=== PATIENT | male | born 1955 | race Hispanic/Latino ===

== ENCOUNTER 2017-12-11 09:22 | Inpatient (IN) | payer MEDICAID, SELFPAY ==
[2017-12-11 10:06] LABS: #Basophils 0.1 thou/uL (0.0-0.2); #Eosinphils 0.4 thou/uL (0.0-0.7); #Lymphocytes 1.8 thou/uL (1.20-3.40); #Monocytes 0.7 thou/uL (0.11-0.59); #Neutrophils 6.6 thou/uL (1.40-6.50); %Basophils 0.7 % (0.0-1.0); %Eosinophils 4.2 % (0.0-10.0); %Lymphocytes 18.5 % (21.0-51.0); %Monocytes 6.9 % (0.0-10.0); %Neutrophils 69.8 % (42.0-75.0); Mean Corpuscular Hemoglobin 31.4 pg (27.0-31.0); Mean Corpuscular Volume 92.3 fl (80.0-94.0); Mean Platelet Volume 6.9 fL (7.4-10.4); Platelet Count 218 thou/uL (130-400); RBC Distribution Width 14.1 % (11.5-14.5); Red Blood Cell (RBC) Count 4.78 mill/uL (4.70-6.10); White Blood Cell (WBC) Count 9.5 thou/uL (4.8-10.8)
--- NOTE | 2017-12-11 10:16 | RAD ---
PORTABLE AP CHEST XRAY: DATE: 12/11/17. HISTORY: Atrial fibrillation. COMPARISON: 07/17/15. FINDINGS: The cardiac silhouette remains enlarged. The pulmonary vasculature is within normal limits. The katelynn gs are clear. There does appear to be dislocation involving the right glenohumeral joint, but this w ould be better evaluated with plain film evaluation of the right shoulder. No other interval change. IMPRESSION: 1. Findings suggesting dislocation involving the right glenohumeral joint. Dedicated views of the r ight shoulder are recommended for further evaluation. 2. Cardiomegaly. 3. Above findings were discussed with Dr. Adame on 12/11/17 at 1011 hours. CODE CR POS: YOSELIN
[2017-12-11] MEDS ORDERED: Aspirin 325 MG TAB ONE (10:20)
[2017-12-11 10:25] LABS: ALT (SGPT) 20 U/L (8-55); AST (SGOT) 17 U/L (5-34); Albumin 4.3 g/dL (3.4-4.8); Alkaline Phosphatase 118 U/L (40-150); Anion Gap 10 mmol/L (10-20); BUN (Urea Nitrogen) 14 mg/dL (8.4-25.7); CK (CPK) 110 U/L (30-200); Calc. Creatinine Clearance 0 mL/min (70-130); Calcium 9.8 mg/dL (7.8-10.44); Carbon Dioxide 27 mmol/L (23-31); Chloride 107 mmol/L (98-107); Estimated GFR-MDRD Greater than 90; Glucose 132 mg/dL (80-115); Potassium 4.3 mmol/L (3.5-5.1); Protein, Total 7.3 g/dL (5.8-8.1); Sodium 140 mmol/L (136-145)
[2017-12-11 10:29] LABS: CKMB 2.9 ng/mL (0-6.6); Troponin I 0.016 ng/mL (< 0.028)
[2017-12-11 10:43] LABS: Bilirubin Negative (Negative); Blood, Urine Moderate (Negative); Clarity CLEAR (Clear); Glucose, Urine (Dipstick) Negative (Negative); Leukocyte Moderate (Negative); Nitrite Negative (Negative); Protein, Urine (Dipstick) Negative (Neg-Trace); Specific Gravity, Urine 1.015 (1.002-1.036); Urobilinogen 0.2 mg/dL (0.2-1.0)
[2017-12-11 10:47] LABS: Bacteria/HPF None Seen HPF (None Seen); Hyaline Casts/LPF 0-3 HYALINE CAST LPF (0-3 Hyaline); Pathc Cast-AUWi Flag 0.43 (0-2.49); Squamous Epithelial 0-3 HPF (0-3)
--- NOTE | 2017-12-11 11:18 | RAD ---
RIGHT SHOULDER 3 VIEWS: HISTORY: Possible dislocation. COMPARISON: None. FINDINGS: There is a irregularity involving the greater tuberosity suggesting a deformity secondary to anterior hypodensity or dislocation. IMPRESSION: Anterior-inferior dislocation with irregularity involving the proximal humerus. Post reduction films are recommended. POS: YOSELIN
--- NOTE | 2017-12-11 11:29 | PDOC.FPRHP ---
- History of Present Illness Chief Complaint: A-fib History of Present Illness: 62 yo male presents for evaluation of irregular heart beat. He states that he went for a check up at the [facility] and was told his heart rate was all over the place and was told to come to ED. He denies chest pain, sob, or feeling palpitations. He denies n/v/d, fevers, chills, or cough. He states he has had a-fib for multiple years and it hasn't effected him. He states that he is compliant with the medications he has been given. He was seen in 2014 for a heart failure exacerbation associated with A-fib. He has had no acute changes in his health and really has no complaints. ED Course: 81 mg ASA - Allergies/Adverse Reactions Allergies Allergy/AdvReac Type Severity Reaction Status Date / Time No Known Drug Allergies Allergy Verified 07/18/15 03:13 - Home Medications Medication Instructions Recorded Confirmed Type Lisinopril [Zestril] 10 mg PO DAILY #0 tab 07/21/15 12/11/17 Rx Pravastatin Sodium [Pravachol] 40 mg PO HS #0 tab 07/21/15 12/11/17 Rx metFORMIN [Glucophage] 500 mg PO BID-WM 12/11/17 12/11/17 History - History PMHx: A-fib, DM2, HLD, HTN, Gout PSHx: None FHx: Non-Contributory Social: Patient denies drug use or smoking history. Patient drinks alcohol socially. - Review of Systems General: denies: fever/chills, weight/appetite/sleep changes Eyes: denies: eye pain ENT: denies: nasal congestion Respiratory: denies: cough, congestion, shortness of breath, exercise intolerance Cardiovascular: denies: chest pain, palpitation, edema Gastrointestinal: denies: nausea, vomiting, diarrhea, constipation Genitourinary: denies: incontinence, dysuria, polyuria Skin: denies: rashes, lesions Musculoskeletal: denies: pain, tenderness, stiffness, swelling, arthritis/ arthralgias Neurological: denies: numbness, syncope Psychological: denies: anxiety, depression - Vital signs BP: 134/99 HR: 108 RR: 18 Tmax: 98.2 Pox: 95% on RmAir Wt: 97 kg - Physical Exam Constitutional: NAD, awake, alert and oriented HEENT: PERRLA, grossly normal vision, TM's clear and intact, grossly normal hearing, normal nasal mucosa, good dention Neck: supple, FROM, trachea midline Chest: no-tender to palpation Heart: normal S1/S2, no murmurs/rubs/gallops, pulses present, no edema -Heart: Irregularly irregular rhythm Lungs: CTAB, no wheezing Abdomen: soft, non-tender, bowel sounds present, no masses/distention Musculoskeletal: normal structure, normal tone, ROM grossly normal Neurological: no focal deficit, CN II-XII intact, normal sensation Skin: no rash/lesions, good turgor, capillary refill <2 seconds Heme/Lymphatic: no unusual bruising or bleeding, no purpura Psychiatric: normal mood and affect, good judgment and insight, intact recent and remote memory FMR H&P: Results - Labs Result Diagrams: 12/11/17 09:45 12/11/17 09:45 Lab results: WBC 9.5 thou/uL (4.8-10.8) 12/11/17 09:45 Hgb 15.0 g/dL (14.0-18.0) 12/11/17 09:45 Hct 44.1 % (42.0-52.0) 12/11/17 09:45 MCV 92.3 fl (80.0-94.0) 12/11/17 09:45 Plt Count 218 thou/uL (130-400) 12/11/17 09:45 Neutrophils % 69.8 % (42.0-75.0) 12/11/17 09:45 Sodium 140 mmol/L (136-145) 12/11/17 09:45 Potassium 4.3 mmol/L (3.5-5.1) 12/11/17 09:45 Chloride 107 mmol/L (98-107) 12/11/17 09:45 Carbon Dioxide 27 mmol/L (23-31) 12/11/17 09:45 BUN 14 mg/dL (8.4-25.7) 12/11/17 09:45 Creatinine 0.79 mg/dL (0.6-1.3) 12/11/17 09:45 Glucose 132 mg/dL (80-115) H 12/11/17 09:45 Calcium 9.8 mg/dL (7.8-10.44) 12/11/17 09:45 Total Bilirubin 1.0 mg/dL (0.2-1.2) 12/11/17 09:45 AST 17 U/L (5-34) 12/11/17 09:45 ALT 20 U/L (8-55) 12/11/17 09:45 Alkaline Phosphatase 118 U/L (40-150) 12/11/17 09:45 Creatine Kinase 110 U/L (30-200) 12/11/17 09:45 CK-MB (CK-2) 2.9 ng/mL (0-6.6) 12/11/17 09:45 Serum Total Protein 7.3 g/dL (5.8-8.1) 12/11/17 09:45 Albumin 4.3 g/dL (3.4-4.8) 12/11/17 09:45 Urine Ketones Negative mg/dL (Negative) 12/11/17 10:21 Urine Blood Moderate (Negative) H 12/11/17 10:21 Urine Nitrite Negative (Negative) 12/11/17 10:21 Ur Leukocyte Esterase Moderate (Negative) H 12/11/17 10:21 Urine RBC 4-6 HPF (0-3) 12/11/17 10:21 Urine WBC 7-10 HPF (0-3) H 12/11/17 10:21 Ur Squamous Epith Cells 0-3 HPF (0-3) 12/11/17 10:21 Urine Bacteria None Seen HPF (None Seen) 12/11/17 10:21 - EKG Interpretation EK lead EKG shows, atrial fibrillation with rapid ventricular response, Rate ( beats per minute): 90, Conduction with, complete right bundle branch block, ST segments normal, T waves normal, [place] normal, Other findings include:, prolonged QTc. - Radiology Interpretation Chest x-ray Status: report reviewed by me (1. Findings suggesting dislocation involving the right glenohumeral joint. Dedicated views of the r ight shoulder are recommended for further evaluation. 2. Cardiomegaly.) FMR H&P: A/P - Problem List (1) Afib Current Visit: No Status: Acute Code(s): I48.91 - UNSPECIFIED ATRIAL FIBRILLATION (2) Shoulder dislocation Current Visit: Yes Status: Chronic (3) HLD (hyperlipidemia) Current Visit: Yes Status: Acute Code(s): E78.5 - HYPERLIPIDEMIA, UNSPECIFIED (4) DM2 (diabetes mellitus, type 2) Current Visit: No Status: Chronic (5) HTN (hypertension) Current Visit: No Status: Chronic Code(s): I10 - ESSENTIAL (PRIMARY) HYPERTENSION (6) Hematuria Current Visit: Yes Status: Acute Code(s): R31.9 - HEMATURIA, UNSPECIFIED (7) CHF (congestive heart failure) Current Visit: No Status: Acute Code(s): I50.9 - HEART FAILURE, UNSPECIFIED (8) Prolonged QT interval Current Visit: Yes Status: Acute Code(s): R94.31 - ABNORMAL ELECTROCARDIOGRAM [ECG] [EKG] - Plan (1) A fib - HR 60-80, monitoring is tracing from 40-110 - Will monitor and consider evaluation for tachy-clive if persists at extremes of HR - If symptomatic will consult Cards - Will restart BB (2) Shoulder dislocation - Chronic found on xray - Ortho consulted in ED - Appreciate recs (3) HLD (hyperlipidemia) - Continue Pravastatin, consider increase in regimen (4) DM2 (diabetes mellitus, type 2) - Continue metformin - SSI - Accuchecks (5) HTN (hypertension) - Continue home meds (6) Hematuria - Will need outpatient Urology workup for this - Hgb WNL - Will check INR (7) CHF - Previous ECHO from 2014 EF 20-25% - Not currently symptomatic - Will repeat ECHO (8) Prolonged QT - QTC on EKG 491 - Avoid QT prolonging agents - Will recheck EKG in AM CODE STATUS: Full Disposition: Stable, Will admit to Telemetry. FMR H&P: Upper Level - Pertinent history Mr. Vides presents after recommendation by PCP at [facility] to proceed to ER for irregularly irregular heart rhythm. He has been asymptomatic and worked without issue yesterday. He reports he was told 10+ years ago about his irregular heart rhythm but has not seen a supervisor ditching or been on blood thinners to his knowledge. - Pertinent findings Pertinent portions of history and exam repeated by me. Agree with Dr. Patrick. Patient also endorses that he fell out of bed a month ago onto his R shoulder. He has no history of shoulder dislocations and does not have any current pain. He noted that he cannot reach his hand above his head on that side, however, but strength is preserved. No obvious asymmetry but limited ROM. Strength 5/5 on RUE. Nuchal obesity, difficult to assess thyroid, otherwise exam WNL. A/P: 62 yo M with known history a fib here with concern for tachy-clive and shoulder dislocation 1. Atrial fibrillation with pulse variation from 40s to low 100s: Will admit to telemetry and monitor rhythm. Trend troponins. Will restart B-florentino 2. H/o CHF: Will repeat ECHO and make appropriate referral pending results. Check FLP 3. DM: Will check a1c, start home meds. ACHS accuchecks with mild SSI 4. HTN, HLD: Home meds 5. Shoulder dislocation: Chronic x1 month and noted on xray. Ortho consulted in ED and will see on floor 6. Asymptomatic hematuria: Coags, H&H stable, will need OP urology 7. Prolonged QT: Avoid QT prolonging agents - Plan Date/Time: 12/11/171127 I, Gabriella Peguero MD, have evaluated this patient and agree with findings/plan as outlined by real estate internship resident. Pertinent changes/additions are listed here. Attending Addendum - Attending Addendum Date/Time: 12/11/17 989 I personally evaluated the patient and discussed the management with Dr. Patrick /Sudhir. I agree with the History, Examination, Assessment and Plan documented above with any addition or exceptions noted below. Patient with longstanding history of sCHF and Afib that has been rate controlled overall without medication presenting today at the suggestion of his PCP at [facility]. He overall denies any symptoms, and reports that he worked yesterday without any issues. He is overall stoic and denies any pain complaints or complaints otherwise. Does report some restriction of movement of his shoulder that is associated with new diagnosis of dislocated shoulder. Patient vitals overall stable, though his HR is irregular and ranges from 40-110 , but most of the time is normal rate. His labs are overall normal and no elevated troponins. Due to his history of Afib with intermittent bradycardia and tachycardia, concern for SSS exists. Patient will be monitored on telemetry so that we can continue to see if his heart rate fluctuates. If so, will need cardiology evaluation for possible PM placement. Due to his history of sCHF, will repeat Echo today. Patient is overall asymptomatic and is on Lisinopril statin therapy. Will further risk stratify. Ortho to see patient in relation to his dislocated shoulder.
[2017-12-11 12:57] LABS: Troponin I 0.014 ng/mL (< 0.028)
[2017-12-11] MEDS ORDERED: Acetaminophen 325 MG TAB PO PRN ×2 (16:40→17:10)
[2017-12-11] MEDS ORDERED: Ondansetron HCl/PF 4 MG/2 ML Vial IVP PRN (16:40)
[2017-12-11] MEDS ORDERED: HYDROcodone/Acetaminophen 5/325 mg Tablet PO PRN ×2 (16:40)
[2017-12-11] MEDS ORDERED: Ondansetron ODT 4 MG TAB SL PRN (16:40)
[2017-12-11 17:08] LABS: Troponin I 0.018 ng/mL (< 0.028)
[2017-12-11 17:09] VITALS: BMI 33.3
[2017-12-11] MEDS ORDERED: Dextrose 5% in Water 1,000 ML IV PRN (17:10)
[2017-12-11] MEDS ORDERED: Dextrose 50% Abboject 50 ML SYRINGE SLOW IVP PRN (17:10)
[2017-12-11] MEDS ORDERED: HumaLOG 300 UNITS/3 ML VIAL SC PRN (17:10)
[2017-12-11 17:39] LABS: INR-International Normal Ratio 1.1; PTT 28.1 SEC (22.9-36.1); Prothrombin Time 14.1 SEC (12.0-14.7)
[2017-12-11 17:41] LABS: Hemoglobin A1c 6.6 % (4.0-6.0)
[2017-12-11 17:57] LABS: Cardiac Risk 3.5 (Less than 4.5); Magnesium 1.9 mg/dL (1.6-2.6); Phosphorus 3.5 mg/dL (2.3-4.7)
[2017-12-11] MEDS: Atorvastatin Calcium 10 MG TAB PO SCH (20:32)
--- NOTE | 2017-12-12 07:26 | PDOC.FM ---
- Subjective Subjective: Patient feels well. He does not feel chest pain or palpitations. He denies sob. No other complaints this morning. - Objective Vital Signs & Weight: Vital Signs (12 hours) Temp Pulse Resp BP Pulse Ox 12/12/17 04:11 98.5 F 80 18 107/81 95 12/12/17 00:05 98.2 F 72 20 109/76 96 12/11/17 20:00 98.9 F 81 20 97 12/11/17 19:48 98.9 F 81 20 170/85 H 97 Weight Weight 92.261 kg I&O: 12/11/17 12/12/17 12/13/17 06:59 06:59 06:59 Intake Total 480 Output Total 355 Balance 125 Result Diagrams: 12/11/17 09:45 12/11/17 09:45 <Hipolito Patrick - Last Filed: 12/12/17 07:24> - Objective Vital Signs & Weight: Vital Signs (12 hours) Temp Pulse Resp BP BP Pulse Ox 12/12/17 09:37 127/84 12/12/17 09:36 98.3 F 89 18 127/84 91 L 12/12/17 04:11 98.5 F 80 18 107/81 95 12/12/17 00:05 98.2 F 72 20 109/76 96 Weight Weight 92.261 kg I&O: 12/11/17 12/12/17 12/13/17 06:59 06:59 06:59 Intake Total 480 Output Total 355 Balance 125 Result Diagrams: 12/11/17 09:45 12/11/17 09:45 <Cecilio Thompson - Last Filed: 12/12/17 10:41> Phys Exam - Physical Examination HEENT: PERRLA Neck: no nodes Respiratory: no wheezing, clear to auscultation bilateral Cardiovascular: no significant murmur irregularly irregular rhythm Gastrointestinal: soft, non-tender, no distention, positive bowel sounds Musculoskeletal: no edema, pulses present Neurological: non-focal, normal sensation, moves all 4 limbs Lymphatic: no nodes Psychiatric: normal affect, A&O x 3 Skin: no rash <Hipolito Patrick - Last Filed: 12/12/17 07:24> Dx/Plan (1) Afib Code(s): I48.91 - UNSPECIFIED ATRIAL FIBRILLATION Status: Acute (2) Shoulder dislocation Status: Chronic (3) HLD (hyperlipidemia) Code(s): E78.5 - HYPERLIPIDEMIA, UNSPECIFIED Status: Acute (4) DM2 (diabetes mellitus, type 2) Status: Chronic (5) HTN (hypertension) Code(s): I10 - ESSENTIAL (PRIMARY) HYPERTENSION Status: Chronic (6) Hematuria Code(s): R31.9 - HEMATURIA, UNSPECIFIED Status: Acute (7) CHF (congestive heart failure) Code(s): I50.9 - HEART FAILURE, UNSPECIFIED Status: Acute (8) Prolonged QT interval Code(s): R94.31 - ABNORMAL ELECTROCARDIOGRAM [ECG] [EKG] Status: Acute - Plan Plan: (1) A fib - HR 60-80, with breakthroughs up to 140-150 - Will monitor and consider evaluation for tachy-clive if persists at extremes of HR - If symptomatic will consult Cards - Will restart BB today. (2) Shoulder dislocation - Chronic found on xray - Ortho consulted in ED - Appreciate recs (3) HLD (hyperlipidemia) - Continue Pravastatin, consider increase in regimen (4) DM2 (diabetes mellitus, type 2) - Continue metformin - SSI - Accuchecks - Well controlled (5) HTN (hypertension) - Continue home meds (6) Hematuria - Will need outpatient Urology workup for this - Hgb WNL - INR 1.1 (7) CHF - Previous ECHO from 2014 EF 20-25% - Not currently symptomatic - ECHO pending (8) Prolonged QT - QTC on EKG 491 - Avoid QT prolonging agents - Will recheck EKG in AM Disposition: Stable, Will admit to Telemetry. <Hipolito Patrick - Last Filed: 12/12/17 07:24> (1) Afib Code(s): I48.91 - UNSPECIFIED ATRIAL FIBRILLATION Status: Acute (2) Shoulder dislocation Status: Chronic (3) HLD (hyperlipidemia) Code(s): E78.5 - HYPERLIPIDEMIA, UNSPECIFIED Status: Acute (4) DM2 (diabetes mellitus, type 2) Status: Chronic (5) HTN (hypertension) Code(s): I10 - ESSENTIAL (PRIMARY) HYPERTENSION Status: Chronic (6) Hematuria Code(s): R31.9 - HEMATURIA, UNSPECIFIED Status: Acute (7) CHF (congestive heart failure) Code(s): I50.9 - HEART FAILURE, UNSPECIFIED Status: Acute (8) Prolonged QT interval Code(s): R94.31 - ABNORMAL ELECTROCARDIOGRAM [ECG] [EKG] Status: Acute <Cecilio Thompson R - Last Filed: 12/12/17 10:41> Attending Addendum - Attending Addendum Date/Time: 12/12/17 1037 I personally evaluated the patient and discussed the management with Dr. Patrick. I agree with the History, Examination, Assessment and Plan documented above with any addition or exceptions noted below. Patient denies complaints. Continue to be in Afib but rate mostly ok without rate control medications. He does become tachycardic, but would have some concern for worsened bradycardia if we started him back on Coreg. Cardiology consulted for possible tachy-clive syndrome. Ortho consulted for his chronic shoulder dislocation. <Cecilio Thompson R - Last Filed: 12/12/17 10:41>
[2017-12-12] MEDS: metFORMIN 500 MG TAB PO SCH ×2 (09:37→17:37)
[2017-12-12] MEDS: Lisinopril 10 MG TAB PO SCH (09:37)
[2017-12-12] MEDS: Enoxaparin Sodium 40 MG/0.4 ML SYRINGE SC SCH (09:37)
--- NOTE | 2017-12-12 13:58 | CON ---
DATE OF CONSULTATION: 12/12/2017 REASON FOR CONSULTATION: Atrial fibrillation and right bundle-branch block, congestive heart failure . HISTORY OF PRESENT ILLNESS: Mr. Cj Vides is a 62-year-old patient previously seen by Dr. Howard. T he patient went to the [facility], and was referred here after he was found apparently to have a rapid heart rate. Mr. Vides has a history of a cardiomyopathy, last seen in our office in 2015. At that time, the monae ent was given samples of Eliquis. He is also on lisinopril and carvedilol, but unfortunately did not like he came back to see us after he saw Dr. Howard in 08/2015. He says he has been doing okay. No chest pain or pressure. No heaviness or squeezing. We are not aware of his rapid heart rate, but h is rate was fast. He has been admitted for further evaluation. MEDICATIONS AT HOME: He was taking, 1. Lisinopril. 2. Pravastatin. 3. Metformin. ALLERGIES: None known. REVIEW OF SYSTEMS: Constitutional: No significant weight gain or loss. Vision: No changes. Hearing: No changes. Pulmonary: No cough or wheezing. Gastrointestinal: No nausea, vomiting, diarrhea. Skin: No rashes. Neurologic: No unilateral weakness or numbness. Psychiatric: No unusual depression or anxiety. Hematologic: No unusual bruising. Genitourinary: No burning with urination. PHYSICAL EXAMINATION: GENERAL: This is a pleasant elderly gentleman, in no distress. VITAL SIGNS: Blood pressure 127/84, pulse 90, but it is extremely variable, sometimes rates at the 1 50s. NECK: Neck veins are normal. Carotid normal upstrokes. LUNGS: Clear. CARDIAC: Irregularly irregular. No murmur, rub or gallop. ABDOMEN: Soft, nontender, no hepatosplenomegaly. EXTREMITIES: No clubbing, no cyanosis or edema. SKIN: Warm and dry. PSYCHIATRIC: Mood and affect normal. NEUROLOGIC: Grossly normal. PERIPHERALLY: He has good dorsalis pedis pulses bilaterally. LABORATORY AND X-RAY FINDINGS: EKG reveals atrial fibrillation with a very variable rate with a righ t bundle-branch block. The rates are up to 160 at times, otherwise in the 70s. Echocardiogram eject ion fraction 20%-25%, 4-chamber dilatation. ASSESSMENT: 1. Probable cardiomyopathy. 2. Right bundle-branch block. 3. Chronic atrial fibrillation with intermittent rapid rate. 3. CHADS VASc score. PLAN: 1. Add carvedilol. 2. Dr. Howard will see the patient tomorrow and decide on further therapy whether the patient may be a candidate for anticoagulation or whether cardiac catheterization should be done. He did have a st ress test previously done, which was normal, in terms of no focal perfusion, but he did have markedly depressed ejection fraction. We will also start carvedilol.
[2017-12-12] MEDS: Carvedilol 6.25 MG TAB PO SCH (17:37)
[2017-12-12] MEDS: Atorvastatin Calcium 10 MG TAB PO SCH (20:17)
--- NOTE | 2017-12-12 22:15 | CON ---
DATE OF CONSULTATION: 12/12/2017 HISTORY OF PRESENT ILLNESS: Mr. Vides is a 62-year-old right-handed male, who states that w hile living in [place], the patient fell out of bed and had immediate pain in the right shoulder regio n. He had no previous problems with the right shoulder. He had immediate inability to fully move th e shoulder and had such pain. He has significant weakness as well. He states that he was seen by a doctor in [place], who told him that the shoulder was fine. He continued to have problems with his sh oulder, this occurred over 6 weeks ago. The patient has had problems with heart rate and presented t o the emergency room yesterday with atrial fibrillation. He had x-rays obtained of the right shoulde r, which showed an anterior dislocated right shoulder. PHYSICAL EXAMINATION: Right shoulder, the patient is able to actively flex his shoulder 45 degrees. He has 40 degrees of abduction. There is some crepitance and popping with any type of range of delia on. His shoulder muscles are weak, particularly with abduction and flexion. IMPRESSION: Chronic anterior right shoulder dislocation. PLAN: Through an slab inspector, I discussed with the patient that he has a chronic shoulder dislocatio n and in order to get it back in position he would require open reduction of the shoulder anteriorly to release scar tissue and to address the anterior ligaments and the subscapularis, we will have to g et the shoulder back in place and then tightened the ligaments back. There is a high chance he also has rotator cuff tear at the same time he dislocated the shoulder and that would need to be looked at as well. My recommendation at this point would be for him to get his heart take care of, get the at rial fibrillation take care of and then see me in my office where we can more appropriately plan the surgery for the right shoulder.
--- NOTE | 2017-12-13 06:18 | PDOC.FM ---
- Subjective Subjective: Patient had a good night. He has no complaints of sob, palpitations, or chest pain. He states he feels well. No other complaints. - Objective Vital Signs & Weight: Vital Signs (12 hours) Temp Pulse Resp BP Pulse Ox 12/13/17 05:20 96.2 F L 81 20 116/76 93 L 12/12/17 23:42 97.6 F 66 20 110/66 95 12/12/17 20:00 98.2 F 84 20 135/88 96 Weight Weight 92.261 kg I&O: 12/11/17 12/12/17 12/13/17 06:59 06:59 06:59 Intake Total 480 580 Output Total 355 330 Balance 125 250 Result Diagrams: 12/11/17 09:45 12/11/17 09:45 Phys Exam - Physical Examination Constitutional: NAD HEENT: moist MMs Respiratory: no wheezing, clear to auscultation bilateral Cardiovascular: no significant murmur irregularly irregular Gastrointestinal: soft, non-tender, no distention, positive bowel sounds Musculoskeletal: no edema, pulses present Neurological: non-focal, normal sensation, moves all 4 limbs Lymphatic: no nodes Psychiatric: normal affect, A&O x 3 Skin: no rash Dx/Plan (1) Afib Code(s): I48.91 - UNSPECIFIED ATRIAL FIBRILLATION Status: Acute (2) Shoulder dislocation Status: Chronic (3) HLD (hyperlipidemia) Code(s): E78.5 - HYPERLIPIDEMIA, UNSPECIFIED Status: Acute (4) DM2 (diabetes mellitus, type 2) Status: Chronic (5) HTN (hypertension) Code(s): I10 - ESSENTIAL (PRIMARY) HYPERTENSION Status: Chronic (6) Hematuria Code(s): R31.9 - HEMATURIA, UNSPECIFIED Status: Acute (7) CHF (congestive heart failure) Code(s): I50.9 - HEART FAILURE, UNSPECIFIED Status: Acute (8) Prolonged QT interval Code(s): R94.31 - ABNORMAL ELECTROCARDIOGRAM [ECG] [EKG] Status: Acute - Plan Plan: (1) A fib - HR 60-80, with breakthroughs up to 140-150 - Cardiology consulted, appreciate recs - Carvedilol started (2) Shoulder dislocation - Chronic found on xray - Ortho consulted in ED, recommended outpatient follow up - Appreciate recs (3) HLD (hyperlipidemia) - Continue Pravastatin, consider increase in regimen (4) DM2 (diabetes mellitus, type 2) - Continue metformin - SSI - Accuchecks - Well controlled (5) HTN (hypertension) - Continue home meds (6) Hematuria - Will need outpatient Urology workup for this - Hgb WNL - INR 1.1 (7) CHF - Previous ECHO from 2014 EF 20-25% - Repeat ECHO EF 20-25% with A-fib present - Not currently symptomatic (8) Prolonged QT - QTC on EKG 491 - Avoid QT prolonging agents - Stable Disposition: Stable, Will await Cardiology recommendations and then discharge planning will be made.
[2017-12-13] MEDS: Lisinopril 10 MG TAB PO SCH (08:37)
[2017-12-13] MEDS: metFORMIN 500 MG TAB PO SCH ×2 (08:37→17:33)
[2017-12-13] MEDS: Enoxaparin Sodium 40 MG/0.4 ML SYRINGE SC SCH (08:37)
[2017-12-13] MEDS: Carvedilol 6.25 MG TAB PO SCH ×2 (08:38→17:33)
--- NOTE | 2017-12-13 11:48 | ADD-PRG ---
DATE OF SERVICE: 12/13/2017 This is an addendum to the note of Dr. Hipolito Patrick. Mr. Vides is resting quietly in bed. His heart rhythm is now around 70-80 in atrial fibrillation. Unique altamirano has a long history of cardiomyopathy and normally sees Dr. Howard. We are waiting Dr. Howard's fin al recommendations and anticipation of discharge thereafter. Clinically, Mr. Vides is stable, in no distress. He is back on a beta florentino, which hopefully we can give him rate control of his atrial f ibrillation.
[2017-12-13] MEDS ORDERED: Communication Order-Pharmacy FS SCH (15:45)
--- NOTE | 2017-12-13 16:38 | PDOC.CTH ---
Cardiology Progress Note - Subjective He is doing well. breathing is at baseline. - Objective Vital Signs Temp Pulse Resp BP BP Pulse Ox 12/13/17 15:07 98.2 F 87 18 132/72 95 12/13/17 11:10 78 14 131/66 92 L 12/13/17 08:37 153/85 H 12/13/17 07:45 98.3 F 67 16 153/85 H 95 12/13/17 05:20 96.2 F L 81 20 116/76 93 L Weight 203 lb 6.4 oz 12/12/17 12/13/17 12/14/17 06:59 06:59 06:59 Intake Total 480 580 Output Total 355 330 Balance 125 250 - Physical Examination General/Neuro: alert & oriented x3, NAD Neck: no JVD present Lungs: unlabored respirations Heart: other: (Irreg) Abdomen: NT/ND Extremities: other: (no edema) - Telemetry Telemetry Rhythm: Afib RH 80's 90's. - Labs Result Diagrams: 12/11/17 09:45 12/11/17 09:45 Troponin/CKMB CK-MB (CK-2) 2.9 ng/mL (0-6.6) 12/11/17 09:45 Troponin I 0.018 ng/mL (< 0.028) 12/11/17 16:23 - Assessment/Plan 1. Dilated cardiomyopathy 2. Chronic afib rate controlled now. 3. Underlying LBBB 4. HTN 5. Non compliance. PLAN: - Will risk stratify with a C tomorrow. We spoke about risks and benefits and he agrees to proceed. If this is unremarkable he will need a BiV AICD before discharge.
[2017-12-13] MEDS: Atorvastatin Calcium 10 MG TAB PO SCH (20:57)
[2017-12-13] MEDS ORDERED: Sodium Chloride 0.9% 1,000 ML IV SCH (23:45)
[2017-12-14] MEDS: Carvedilol 6.25 MG TAB PO SCH ×2 (06:28→17:33)
[2017-12-14] MEDS: Lisinopril 10 MG TAB PO SCH (06:28)
--- NOTE | 2017-12-14 06:41 | PDOC.FM ---
- Subjective Subjective: Patient was seen in preparation for his Cath this AM. No complaints. - Objective Vital Signs & Weight: Vital Signs (12 hours) Temp Pulse Resp BP BP Pulse Ox 12/14/17 06:28 132/72 12/14/17 04:00 97.8 F 67 20 107/76 94 L 12/14/17 00:00 98.1 F 80 18 121/75 94 L 12/13/17 20:00 98.0 F 78 18 133/74 93 L Weight Weight 92.261 kg I&O: 12/12/17 12/13/17 12/14/17 06:59 06:59 06:59 Intake Total 480 580 676 Output Total 355 330 250 Balance 125 250 426 Result Diagrams: 12/11/17 09:45 12/11/17 09:45 Phys Exam - Physical Examination Constitutional: NAD HEENT: moist MMs Neck: no nodes Respiratory: no wheezing, clear to auscultation bilateral Cardiovascular: no significant murmur irregularly irregular Gastrointestinal: soft, non-tender, no distention, positive bowel sounds Musculoskeletal: no edema, pulses present Neurological: non-focal, normal sensation, moves all 4 limbs Lymphatic: no nodes Psychiatric: normal affect Skin: no rash Dx/Plan (1) Afib Code(s): I48.91 - UNSPECIFIED ATRIAL FIBRILLATION Status: Acute (2) Shoulder dislocation Status: Chronic (3) HLD (hyperlipidemia) Code(s): E78.5 - HYPERLIPIDEMIA, UNSPECIFIED Status: Acute (4) DM2 (diabetes mellitus, type 2) Status: Chronic (5) HTN (hypertension) Code(s): I10 - ESSENTIAL (PRIMARY) HYPERTENSION Status: Chronic (6) Hematuria Code(s): R31.9 - HEMATURIA, UNSPECIFIED Status: Acute (7) CHF (congestive heart failure) Code(s): I50.9 - HEART FAILURE, UNSPECIFIED Status: Acute (8) Prolonged QT interval Code(s): R94.31 - ABNORMAL ELECTROCARDIOGRAM [ECG] [EKG] Status: Acute - Plan Plan: (1) A fib - HR 60-80, with breakthroughs up to 140-150 - Cardiology consulted, appreciate recs - Carvedilol started - Dr. Howard to Cath patient this AM - Also recommends AICD before discharge if Cath clean (2) Shoulder dislocation - Chronic found on xray - Ortho consulted in ED, recommended outpatient follow up - Appreciate recs (3) HLD (hyperlipidemia) - Continue Pravastatin, consider increase in regimen (4) DM2 (diabetes mellitus, type 2) - Continue metformin - SSI - Accuchecks - Well controlled (5) HTN (hypertension) - Continue home meds (6) Hematuria - Will need outpatient Urology workup for this - Hgb WNL - INR 1.1 (7) CHF - Previous ECHO from 2014 EF 20-25% - Repeat ECHO EF 20-25% with A-fib present - Not currently symptomatic (8) Prolonged QT - QTC on EKG 491 - Avoid QT prolonging agents - Stable Disposition: Stable, Will await Cardiology recommendations.
[2017-12-14] MEDS ORDERED: Lidocaine 1% (PF) 30 ML VIAL ONE (07:26)
[2017-12-14] MEDS ORDERED: Midazolam HCl 2 mg/2 ml Vial ONE (08:05)
[2017-12-14] MEDS ORDERED: Fentanyl 100 MCG/2 ML VIAL ONE (08:05)
[2017-12-14] MEDS ORDERED: Nitroglycerin 0.4 MG TAB (25 Tab Bottle) SL PRN (08:24)
[2017-12-14] MEDS ORDERED: Acetaminophen/Codeine 30-300mg Tablet PO PRN (08:24)
[2017-12-14] MEDS ORDERED: Sodium Chloride 0.9% 200 ML IV SCH (08:30)
[2017-12-14] MEDS: metFORMIN 500 MG TAB PO SCH ×2 (09:01→17:34)
[2017-12-14] MEDS: traMADol HCl 50 MG TAB PO PRN (09:04)
[2017-12-14] MEDS ORDERED: Iopamidol 370 76% 100 ML VIAL ONE (13:24)
--- NOTE | 2017-12-14 13:25 | ADD-PRG ---
ADDENDUM Please add this as an addendum to the note of Dr. Hipolito Patrick. Mr. Vides has just returned from cardiac catheterization which showed no coronary artery disease. It did demonstrate of course a known low ejection fraction. Dr. Howard is to consult for placement of an AID. Clinically, Mr. Vides is sitting quietly in bed in no distress. We will continue to follow with Cardiology.
[2017-12-14] MEDS: Atorvastatin Calcium 10 MG TAB PO SCH (20:26)
--- NOTE | 2017-12-14 20:34 | CON ---
DATE OF CONSULTATION: 12/14/2017 ELECTROPHYSIOLOGY CONSULTATION This is Kia Gruber, nurse practitioner dictating a scribe for Dr. Jax Cutler. REFERRING PHYSICIAN: Sahil Howard MD. REASON FOR CONSULTATION: Atrial fibrillation, bundle branch block and systolic heart failure. HISTORY OF PRESENT ILLNESS: Mr. Vides is a pleasant 62-year-old male who presented to [facility] at which point, he was found to have a rapid heart rate and was sent to the hospital for furt her evaluation. He has a history of cardiomyopathy and is [facility]. He has a known history of atrial arrhythmias and was given samples of Eliquis. To day he reports that he is feeling well. He has not had any heart racing, palpitations, chest pain or pressure, syncope or near syncope. His most pressing complaint is his chronic pain in his right hany ulder from a fall that happened approximately 6 weeks ago. He denies any stroke or stroke like sympt oms or any progressive heart failure symptoms including activity intolerance, progressive fatigue, sh ortness of breath or swelling in the extremities. REVIEW OF SYSTEMS: A 12-point review of systems was conducted and is negative except that listed abo ve in the HPI. PAST MEDICAL HISTORY: 1. Cardiomyopathy, HFrEF 20%-25%. 2. Hypertension. 3. Chronic atrial fibrillation, rate controlled. ALLERGIES: No known allergies. HOME MEDICATIONS: Lisinopril, pravastatin and metformin. PHYSICAL EXAMINATION: VITAL SIGNS: Most recent vital signs are 97.9, pulse 70, respirations 20, oxygen saturation 92% on r oom air, blood pressure 126/82. GENERAL: This is a well-appearing, well-groomed gentleman, in no acute distress. He is alert and or iented, Guamanian speaking only. HEENT: His speech is clear and his affect is appropriate. He is normocephalic, atraumatic. NECK: Supple without jugular venous distention. LUNGS: Clear to auscultation bilaterally without wheezes, crackles or rhonchi. His respirations are even and unlabored with good bilateral excursion. CARDIAC: Heart rate is irregularly irregular. There is no significant murmur, rub or gallop. His P IA is nonpalpable. ABDOMEN: Obese, soft and nontender without hepatosplenomegaly. His hepatojugular reflux is negative . EXTREMITIES: Warm and dry to touch without clubbing, cyanosis or edema. NEUROLOGIC: Grossly intact and nonfocal. Gait was not assessed; however, the patient does have very limited range of motion of the right upper extremity, which is then evaluated and it is related to s ome trauma that happened approximately 6 weeks ago. DATABASE: Telemetry and EKG reveals atrial fibrillation with variable AV conduction as well as a bif ascicular/right bundle branch block. Currently, sustained with rates in the 70s, occasionally with R VR up to 160 beats per minute. Left heart catheterization on 12/11/2017 did not reveal any significant coronary artery disease and e stimated EF by echo is 20%-25%. ASSESSMENT: 1. Severely reduced ejection fraction, likely cardiomyopathy. 2. 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 3. Chronic atrial fibrillation with rapid ventricular response, now rate controlled. 4. Elevated CHADS-VASc score, not currently on anticoagulation. 5. Chronic atrial fibrillation, rate controlled. RECOMMENDATIONS: Long discussion was had with Mr. Vides regarding possible complications having significantly reduced ejection fraction, in addition to atrial fibrillation. He has a bifascicular block, although no left bundle branch block is present and his functional status is not limited at this time despite his EF of 15%-20%. We discussed ICD placement, risks, benefits, and alternatives. Risks include swelling, pain, infection at the implant site, perforation of the heart, need for a chest tube placed and/or mccollum rgical repair. He verbalized understanding and agreed with this plan of care. Additional education will be provided for him. At this time, he is agreeable to undergo ICD implant. Post-implant, I rec ommend oral anticoagulation to be initiated prior to him leaving given his chronic atrial fibrillatio n and elevated CHADS-VASc score. He will be kept n.p.o. after midnight and consented for ICD placeme nt with anesthesia, possibly for Wednesday. If not Wednesday, then definitely on . Thank you for allowing us to participate in the care of this patient.
[2017-12-15] MEDS: Lisinopril 10 MG TAB PO SCH (04:09)
[2017-12-15] MEDS: Carvedilol 6.25 MG TAB PO SCH ×2 (04:09→16:27)
--- NOTE | 2017-12-15 06:22 | PDOC.FM ---
- Subjective Subjective: Patient seen in preparation of AICD placement this AM. No new complaints. - Objective Vital Signs & Weight: Vital Signs (12 hours) Temp Pulse Resp BP BP Pulse Ox 12/15/17 04:09 108/68 12/15/17 04:00 97.9 F 72 126/74 93 L 12/14/17 20:00 97.9 F 63 18 105/50 L 93 L Weight Weight 92.261 kg I&O: 12/13/17 12/14/17 12/15/17 06:59 06:59 06:59 Intake Total 580 676 Output Total 330 250 Balance 250 426 Result Diagrams: 12/11/17 09:45 12/11/17 09:45 Phys Exam - Physical Examination Constitutional: NAD Respiratory: no wheezing, clear to auscultation bilateral irregularly irregular rhythm. Gastrointestinal: soft, non-tender, no distention, positive bowel sounds Musculoskeletal: no edema, pulses present Neurological: non-focal, moves all 4 limbs Psychiatric: normal affect Skin: no rash Dx/Plan (1) Afib Code(s): I48.91 - UNSPECIFIED ATRIAL FIBRILLATION Status: Acute (2) Shoulder dislocation Status: Chronic (3) HLD (hyperlipidemia) Code(s): E78.5 - HYPERLIPIDEMIA, UNSPECIFIED Status: Acute (4) DM2 (diabetes mellitus, type 2) Status: Chronic (5) HTN (hypertension) Code(s): I10 - ESSENTIAL (PRIMARY) HYPERTENSION Status: Chronic (6) Hematuria Code(s): R31.9 - HEMATURIA, UNSPECIFIED Status: Acute (7) CHF (congestive heart failure) Code(s): I50.9 - HEART FAILURE, UNSPECIFIED Status: Acute (8) Prolonged QT interval Code(s): R94.31 - ABNORMAL ELECTROCARDIOGRAM [ECG] [EKG] Status: Acute - Plan Plan: (1) A fib - HR 60-80, with breakthroughs up to 140-150 - Cardiology consulted, appreciate recs - Carvedilol started - Dr. Lee Bustos 12/14 clean cath - AICD placement by Dr. Cutler today - Will need outpatient anticoagulation after AICD placement (2) Shoulder dislocation - Chronic found on xray - Ortho consulted in ED, recommended outpatient follow up - Appreciate recs (3) HLD (hyperlipidemia) - Continue Pravastatin, consider increase in regimen (4) DM2 (diabetes mellitus, type 2) - Continue metformin - SSI - Accuchecks - Well controlled (5) HTN (hypertension) - Continue home meds (6) Hematuria - Will need outpatient Urology workup for this - Hgb WNL - INR 1.1 (7) CHF - Previous ECHO from 2014 EF 20-25% - Repeat ECHO EF 20-25% with A-fib present - Not currently symptomatic (8) Prolonged QT - QTC on EKG 491 - Avoid QT prolonging agents - Stable Disposition: Stable, Will await Cardiology recommendations.
[2017-12-15] MEDS ORDERED: Promethazine HCl 25 MG/ML VIAL ONE (06:59)
[2017-12-15] MEDS ORDERED: Propofol 1,000 MG/100 ML VIAL IV ONE (06:59)
[2017-12-15] MEDS ORDERED: Ondansetron HCl/PF 4 MG/2 ML Vial ONE (06:59)
[2017-12-15] MEDS ORDERED: Lidocaine 1% (PF) 30 ML VIAL ONE (07:46)
[2017-12-15] MEDS ORDERED: CEFAZOLIN/Water 2 GM/20 ML SYRINGE ONE (07:46)
[2017-12-15] MEDS ORDERED: Lidocaine 2% Jelly 5 ML TUBE ONE (08:15)
[2017-12-15] MEDS ORDERED: Promethazine HCl 25 MG/ML VIAL SLOW IVP PRN (08:50)
[2017-12-15] MEDS ORDERED: Morphine Sulfate 2 MG/ML SYRINGE SLOW IVP PRN (08:50)
[2017-12-15] MEDS ORDERED: Ondansetron HCl/PF 4 MG/2 ML Vial IVP PRN (08:50)
--- NOTE | 2017-12-15 12:23 | PRG ---
DATE OF SERVICE: 12/15/2017 Mr. Vides has just returned from been having his AICD placed. He is resting quietly in no distress. His wound appears clean and dry. We will decide upon an anticoagulant subsequent to his discharge probably tomorrow.
[2017-12-15] MEDS: Cephalexin 250 MG CAP PO SCH ×2 (12:43→16:27)
[2017-12-15] MEDS: metFORMIN 500 MG TAB PO SCH ×2 (12:43→16:28)
[2017-12-15] MEDS ORDERED: Iopamidol 370 76% 50 ML VIAL FS ONE (13:02)
--- NOTE | 2017-12-15 14:05 | RAD ---
PORTABLE CHEST: History: Post cardiac device placement. FINDINGS: An AICD lead has been placed via the left subclavian vein. Lungs are clear. No pneumothorax or vascul ar congestion. Mild cardiomegaly noted. IMPRESSION: No evidence of acute process. POS: YOSELIN
[2017-12-15] MEDS ORDERED: PROPOFOL 200 MG/20 ML VIAL ONE (15:14)
[2017-12-15] MEDS ORDERED: PHENYLEPHRINE-NS 100 MCG/ML 10 ML SYRINGE ONE (15:14)
--- NOTE | 2017-12-15 16:53 | PDOC.CTH ---
Cardiology Progress Note - Subjective Doing well. Had LHC yesterday and it showed mild CAD. - Objective Vital Signs Temp Pulse Resp BP BP Pulse Ox 12/15/17 16:27 134/84 12/15/17 16:00 98.4 F 59 L 19 134/84 96 12/15/17 12:00 98.2 F 62 17 112/71 95 12/15/17 09:25 97.6 F 70 20 114/68 94 L 12/15/17 07:31 97.5 F L 56 L 18 119/77 95 12/15/17 07:10 97.5 F L 56 L 18 95 Weight 203 lb 6.4 oz 12/14/17 12/15/17 12/16/17 06:59 06:59 06:59 Intake Total 676 360 Output Total 250 Balance 426 360 - Physical Examination General/Neuro: alert & oriented x3, NAD Neck: no JVD present Lungs: CTA, unlabored respirations Heart: RRR Abdomen: NT/ND Extremities: other: (no edema) - Telemetry Telemetry Rhythm: NSR - Labs Result Diagrams: 12/11/17 09:45 12/11/17 09:45 Troponin/CKMB CK-MB (CK-2) 2.9 ng/mL (0-6.6) 12/11/17 09:45 Troponin I 0.018 ng/mL (< 0.028) 12/11/17 16:23 - Assessment/Plan 1. Dilated cardiomyopathy 2. Chronic afib rate controlled now. 3. Underlying LBBB 4. HTN 5. Non compliance. PLAN: - AICD today. - Home tomorrow. - Continue BB/ACEI. - Xarelto for stroke prophylaxis however he will need a 30 day coupon as well as try to get him enrolled in Xarelto help program.
[2017-12-15] MEDS: Atorvastatin Calcium 10 MG TAB PO SCH (21:15)
[2017-12-16] MEDS: Cephalexin 250 MG CAP PO SCH ×4 (01:05→17:31)
[2017-12-16] MEDS: traMADol HCl 50 MG TAB PO PRN (01:07)
--- NOTE | 2017-12-16 06:14 | PDOC.FM ---
- Subjective Subjective: Patient feels better today. Patient states he does feel palpations at times. He denies chest pain or SOB. He states that he is feeling well. No other complaints. - Objective Vital Signs & Weight: Vital Signs (12 hours) Temp Pulse Resp BP Pulse Ox 12/16/17 04:00 98.7 F 79 20 150/81 H 93 L 12/15/17 20:00 98.3 F 58 L 18 112/76 93 L Weight Weight 92.261 kg I&O: 12/14/17 12/15/17 12/16/17 06:59 06:59 06:59 Intake Total 676 1080 Output Total 250 750 Balance 426 330 Result Diagrams: 12/11/17 09:45 12/11/17 09:45 Phys Exam - Physical Examination Constitutional: NAD HEENT: moist MMs Neck: no nodes Respiratory: no wheezing, clear to auscultation bilateral Cardiovascular: no significant murmur irregularly irregular rhythm, regular rate Gastrointestinal: soft, non-tender, no distention, positive bowel sounds Musculoskeletal: no edema, pulses present Neurological: non-focal, normal sensation, moves all 4 limbs Lymphatic: no nodes Psychiatric: normal affect, A&O x 3 Skin: no rash Dx/Plan (1) Afib Code(s): I48.91 - UNSPECIFIED ATRIAL FIBRILLATION Status: Acute (2) Shoulder dislocation Status: Chronic (3) HLD (hyperlipidemia) Code(s): E78.5 - HYPERLIPIDEMIA, UNSPECIFIED Status: Acute (4) DM2 (diabetes mellitus, type 2) Status: Chronic (5) HTN (hypertension) Code(s): I10 - ESSENTIAL (PRIMARY) HYPERTENSION Status: Chronic (6) Hematuria Code(s): R31.9 - HEMATURIA, UNSPECIFIED Status: Acute (7) CHF (congestive heart failure) Code(s): I50.9 - HEART FAILURE, UNSPECIFIED Status: Acute (8) Prolonged QT interval Code(s): R94.31 - ABNORMAL ELECTROCARDIOGRAM [ECG] [EKG] Status: Acute (9) Cardiomyopathy, dilated Code(s): I42.0 - DILATED CARDIOMYOPATHY Status: Chronic - Plan Plan: (1) A fib - HR 60-80, with breakthroughs up to 140-150 - Cardiology consulted, appreciate recs - Carvedilol started - Dr. Lee Bustos 5/15 clean cath - AICD placement by Dr. Cutler today - Cardiology started Xarelto and have helped with assistance program - 0500: some beats of suspected V-tach, await Card recs (2) Shoulder dislocation - Chronic found on xray - Ortho consulted in ED, recommended outpatient follow up - Appreciate recs (3) HLD (hyperlipidemia) - Continue Pravastatin, consider increase in regimen (4) DM2 (diabetes mellitus, type 2) - Continue metformin - SSI - Accuchecks - Well controlled (5) HTN (hypertension) - Continue home meds (6) Hematuria - Will need outpatient Urology workup for this - Hgb WNL - INR 1.1 (7) CHF secondary to dilated cardiomyopathy - Previous ECHO from 2015 EF 20-25% - Repeat ECHO EF 20-25% with A-fib present - Not currently symptomatic (8) Prolonged QT - QTC on EKG 491 - Avoid QT prolonging agents - Stable Disposition: Stable, Patient can be discharged today pending Cards clearance.
[2017-12-16] MEDS ORDERED: Metoprolol Tartrate 5 MG/5 ML VIAL IVP SCH (08:45)
[2017-12-16] MEDS: metFORMIN 500 MG TAB PO SCH ×2 (08:46→17:33)
[2017-12-16] MEDS: Lisinopril 10 MG TAB PO SCH (08:46)
[2017-12-16] MEDS: Carvedilol 6.25 MG TAB PO SCH ×2 (08:47→17:31)
[2017-12-16] MEDS ORDERED: Rivaroxaban 10 MG TAB PO SCH ×2 (09:00→21:00)
[2017-12-16 09:19] LABS: #Basophils 0.1 thou/uL (0.0-0.2); #Eosinphils 0.3 thou/uL (0.0-0.7); #Lymphocytes 1.8 thou/uL (1.20-3.40); #Monocytes 0.6 thou/uL (0.11-0.59); #Neutrophils 7.7 thou/uL (1.40-6.50); %Basophils 0.5 % (0.0-1.0); %Eosinophils 2.8 % (0.0-10.0); %Lymphocytes 17.1 % (21.0-51.0); %Monocytes 5.6 % (0.0-10.0); Hemoglobin 15.7 g/dL (14.0-18.0); Mean Corpuscular HGB CONC 34.3 g/dL (32.0-36.0); Mean Corpuscular Hemoglobin 31.8 pg (27.0-31.0); Mean Corpuscular Volume 92.6 fl (80.0-94.0); Platelet Count 230 thou/uL (130-400); RBC Distribution Width 13.9 % (11.5-14.5); Red Blood Cell (RBC) Count 4.94 mill/uL (4.70-6.10); White Blood Cell (WBC) Count 10.4 thou/uL (4.8-10.8)
[2017-12-16 09:39] LABS: Anion Gap 13 mmol/L (10-20); BUN (Urea Nitrogen) 14 mg/dL (8.4-25.7); Calc. Creatinine Clearance 104 mL/min (70-130); Calcium 9.6 mg/dL (7.8-10.44); Carbon Dioxide 24 mmol/L (23-31); Chloride 102 mmol/L (98-107); Estimated GFR-MDRD 80; Glucose 220 mg/dL (80-115); Potassium 4.1 mmol/L (3.5-5.1); Sodium 135 mmol/L (136-145)
--- NOTE | 2017-12-16 10:43 | RAD ---
TWO VIEW CHEST: HISTORY: Atrial fibrillation. COMPARISON: 12/15/2017 FINDINGS: The heart is mildly enlarged. The lungs appear clear of infiltrate. The single AICD lead is unchang ed. No evidence of vascular congestion or edema. IMPRESSION: No acute lung process. POS: C
--- NOTE | 2017-12-16 14:23 | ADD-PRG ---
DATE OF SERVICE: 12/16/2017 Please add as an addendum to the note of Dr. Hipolito Patrick. Mr. Vides had an episode of atrial fib rillation with RVR, which resolved with some IV beta-florentino. He is currently in atrial fibrillation with controlled ventricular rate. He will likely be discharged later today. He offers no new compl aints.
--- NOTE | 2017-12-16 15:26 | PRG ---
DATE OF SERVICE: 12/16/2017 ELECTROPHYSIOLOGY FOLLOWUP NOTE SUBJECTIVE: Mr. Vides is doing well one day after his ICD implant. OBJECTIVE: VITAL SIGNS: Blood pressure 151/83, heart rate 110, temperature 98.2, respirations 17, O2 sats hiwot l. GENERAL: He is alert and oriented man in no apparent distress. NECK: Supple. Jugular veins not distended. CHEST: Coarse without crackles. CARDIOVASCULAR: Heart sounds are regular to rate and rhythm. No murmur, rub or gallop. ABDOMEN: Benign. Bowel sounds positive. EXTREMITIES: Lower extremities without edema, clubbing or cyanosis. Left precordial ICD insertion s ite is well healed. DATABASE: The chest x-ray shows no pneumothorax, adequate ICD placement noted and interrogation reve als no abnormalities. [employer] single chamber device. ASSESSMENT AND PLAN: Mr. Vides is a 62-year-old man with history of nonischemic cardiomyopathy, whic h is chronic, chronic atrial fibrillation and right bundle branch block present on his EKG. He under went a single chamber ICD implantation yesterday from which he is recovering without signs of complic ations. PLAN: Routine wound check in 2 weeks, 1 week of antibiotic, discharge to home when primary practice agrees.
[2017-12-16 17:33] VITALS: BP 139/83
[2017-12-16 17:34] VITALS: TEMP 98.6
--- NOTE | 2017-12-17 06:35 | DIS-2 ---
DATE OF ADMISSION: 12/11/2017 DATE OF DISCHARGE: 12/16/2017 RESIDENT: Hipolito Patrick MD ADMITTING ATTENDING: Cecilio Thompson MD DISCHARGE ATTENDING: Nathaniel Guzman MD CONSULTATIONS: 1. Cardiology with Dr. Cheng and Dr. Howard. 2. Electrophysiology, Dr. Cutler. 3. Orthopedics, Dr. Doe. 4. Cardiac rehabilitation. 5. Case management. PROCEDURES: The patient underwent a chest x-ray on 12/11/2017 that showed findings suggestive of dislocation involving the right glenohumeral joint, cardiomegaly. The patient underwent a shoulder x-ray on 12/11/2017 that showed anterior- inferior dislocation with irregularity involving the proximal humerus. Post- reduction films are recommended. Patient underwent an echocardiogram on 12/12/2017 that showed ejection fraction is visually estimated at 20-25%. Left ventricle size moderately increased. Atrial fibrillation is present. Left atrium is severely dilated. Mild mitral regurgitation is present. Structurally normal aortic valve with no significant stenosis or regurgitation. Mild tricuspid regurgitation. The patient underwent a cardiac catheterization on 12/14/2017 that showed normal coronaries, reduced left ventricle function at 15-20%, normal LVEDP. No left ventricle to aorta gradient. Recommended EP consultation for consideration of an AICD. Patient underwent an AICD placement on 12/15/[address] Cutler. The patient underwent a chest x-ray on 12/15/2017 that showed no evidence of acute process. The patient underwent a chest x-ray on 12/16/2017 that showed no acute lung process. A single AICD lead is unchanged. No evidence of vascular congestion or edema. PRIMARY DIAGNOSES: 1. Atrial fibrillation. 2. Dilated cardiomyopathy. 3. Shoulder dislocation, chronic. 4. Hyperlipidemia. 5. Diabetes mellitus type 2. 6. Hypertension. 7. Hematuria. 8. Congestive heart failure. DISCHARGE MEDICATIONS: 1. Lisinopril 10 mg p.o. daily. 2. Pravastatin 40 mg p.o. at bedtime. 3. Metformin 500 mg p.o. b.i.d. with meals. 4. Carvedilol 6.25 mg p.o. b.i.d. with meals. 5. Keflex 500 mg p.o. q.6 hour for 7 days. 6. Xarelto 20 mg p.o. at bedtime. DISCONTINUED MEDICATIONS: None. HISTORY OF PRESENT ILLNESS AND HOSPITAL COURSE: This is a 62-year-old male who presents for evaluation of irregular heartbeat. He states he went for a checkup at [facility], and was told his heart rate was "all over the place" and he was told to come to the ED. He denies chest pain, shortness of breath, or feeling palpitations. He denies nausea, vomiting, diarrhea, fevers, chills, or cough. He states he has had atrial fibrillation for multiple years and has not affected him. He states he is compliant with medications he has been given. He was seen in 2015 for heart failure exacerbation associated with atrial fibrillation. He has had no other acute changes in health and really has no complaints. In the ED, he was given 81 mg of aspirin. During this hospitalization, the patient did not have any remarkable lab values other than a hemoglobin A1c of 6.6, which did prove good control of his diabetes. The patient's heart rate did range from the 60s to 80s in atrial fibrillation; however, he started to have breakthrough runs into 130s to 150s. At that time, Cardiology was consulted and they recommended a beta florentino be given to the patient to undergo further control of his heart rate. The patient continued to have breakthrough of runs up into the 140s and 150s on telemetry monitoring and so Cardiology then recommended to undergo a cardiac catheterization to determine why this patient has such as a low ejection fraction and it is causing dilation and excessive dilation was causing any excess atrial fibrillation episodes. The patient underwent a successful catheterization with Dr. Howard and had normal coronary arteries found at that time. Dr. Howard recommended the patient to see electrophysiology for AICD placement because of his low ejection fraction. Dr. Cutler with electrophysiology saw the patient and recommended AICD placement. He underwent a successful AICD placed on 12/15/2017. The patient really had no complaints during this hospitalization, never felt any palpitations, never felt any chest pain or shortness of breath. His blood pressure remained normotensive during the entire hospitalization, he did have few blood pressure values as high as 161/78. They responded well to medications. Otherwise, he was normotensive and afebrile during this hospitalization. Patient was started on Xarelto for long-term anticoagulation per Dr. Cutler, given a discount card for the first 30 days and then will need to be followed up with an assistance program in the future. The patient otherwise allowed to have close followup with Electrophysiology and Cardiology as an outpatient to optimize his care. The patient had no further complications during this hospitalization and was discharged on appropriate condition. DISCHARGE INSTRUCTIONS: 1. Location: Home, will be discharged home in the care of himself. 2. Diet will be a diabetic heart healthy diet. 3. Activity will be as tolerated with no restrictions. 4. Follow up will be with patient's PCP, [facility] in 3 days as well as the [facility] within 1 week , Dr. Sahil Howard with Cardiology in [address] Jax Cutler with Electrophysiology in 7 days. Further discuss treatment of his underlying cardiac disease. We wishes to get the best luck and hope that he has no further complications from this condition. SUKHWINDER
--- NOTE | 2017-12-18 14:34 | EKG ---
Test Reason : Blood Pressure : / mmHG Vent. Rate : 090 BPM Atrial Rate : 102 BPM P-R Int : 000 ms QRS Dur : 146 ms QT Int : 402 ms P-R-T Axes : 000 003 006 degrees QTc Int : 491 ms Atrial fibrillation Right bundle branch block Abnormal ECG Right bundle branch block Confirmed by FALLON HOLCOMB M.D. ([id number]), video news editor SCOOBY LI ([id number]) on 12/18/2017 2:34:19 PM Referred By: Confirmed By:FALLON HOLCOMB M.D.
--- NOTE | 2017-12-20 13:21 | EKG ---
Test Reason : TIMED Blood Pressure : / mmHG Vent. Rate : 074 BPM Atrial Rate : 107 BPM P-R Int : 000 ms QRS Dur : 152 ms QT Int : 416 ms P-R-T Axes : 000 016 028 degrees QTc Int : 461 ms Atrial fibrillation Right bundle branch block Abnormal ECG When compared with ECG of 11-DEC-2017 09:30, (Unconfirmed) No significant change was found Confirmed by DR. Ever CONTRERAS ([id number]) on 12/20/2017 1:21:04 PM Referred By: NICHOLAS Confirmed By:DR. Ever CONTRERAS
== END 2017-12-16 19:15 | disposition home or self-care (01) | DRG 225 ==
LOC: ERS 09:22 → ERHOLD 12:04 → 2NO 16:34
PROVIDERS: ADMIT Student in an Organized Health Care Education/Training Program; ATTEND Student in an Organized Health Care Education/Training Program
PROC: 4A023N7 Measurement of Cardiac Sampling and Pressure, Left Heart, Percutaneous Approach (ICD-10-PCS; 2017-12-14)
PROC: B2111ZZ Fluoroscopy of Multiple Coronary Arteries using Low Osmolar Contrast (ICD-10-PCS; 2017-12-14)
PROC: B2151ZZ Fluoroscopy of Left Heart using Low Osmolar Contrast (ICD-10-PCS; 2017-12-14)
PROC: 0JH608Z Insertion of Defibrillator Generator into Chest Subcutaneous Tissue and Fascia, Open Approach (ICD-10-PCS; principal; 2017-12-15)
PROC: 02HK3KZ Insertion of Defibrillator Lead into Right Ventricle, Percutaneous Approach (ICD-10-PCS; 2017-12-15)
DX: I48.2 Chronic atrial fibrillation (principal); I50.22 Chronic systolic (congestive) heart failure; E11.9 Type 2 diabetes mellitus without complications; I42.0 Dilated cardiomyopathy; M10.9 Gout, unspecified; E78.5 Hyperlipidemia, unspecified; R31.9 Hematuria, unspecified; R94.31 Abnormal electrocardiogram [ECG] [EKG]; Z91.19 Patient's noncompliance with other medical treatment and regimen; I25.10 Atherosclerotic heart disease of native coronary artery without angina pectoris; I45.2 Bifascicular block; M24.411 Recurrent dislocation, right shoulder; I07.1 Rheumatic tricuspid insufficiency; I11.0 Hypertensive heart disease with heart failure
CPT/HCPCS: 33249; 36415; 36416; 71045; 71046; 80048; 80053; 80061; 81003; 81015; 82553; 83036; 83735; 84100; 84443; 84484; 85025; 85610; 85730; 90471; 90732; 93005; 93010; 93306; 93458; 99152; 99153; A4216; C1722; C1777; G0009; J1644; J1650; J2001; J2250; J2405; J2550; J2704; J3010; J3490

== ENCOUNTER 2017-12-21 16:56 | Inpatient (IN) | payer MEDICAID, SELFPAY ==
[2017-12-21 17:18] LABS: #Basophils 0.1 thou/uL (0.0-0.2); #Eosinphils 0.3 thou/uL (0.0-0.7); #Monocytes 0.7 thou/uL (0.11-0.59); %Basophils 0.7 % (0.0-1.0); %Eosinophils 2.8 % (0.0-10.0); %Lymphocytes 19.6 % (21.0-51.0); %Monocytes 6.5 % (0.0-10.0); %Neutrophils 70.4 % (42.0-75.0); Hemoglobin 15.9 g/dL (14.0-18.0); Mean Corpuscular HGB CONC 34.8 g/dL (32.0-36.0); Mean Corpuscular Hemoglobin 31.7 pg (27.0-31.0); Mean Corpuscular Volume 91.1 fl (80.0-94.0); Platelet Count 263 thou/uL (130-400); RBC Distribution Width 13.4 % (11.5-14.5)
[2017-12-21 17:41] LABS: ALT (SGPT) 23 U/L (8-55); AST (SGOT) 30 U/L (5-34); Albumin 4.2 g/dL (3.4-4.8); Alkaline Phosphatase 116 U/L (40-150); Anion Gap 13 mmol/L (10-20); BUN (Urea Nitrogen) 17 mg/dL (8.4-25.7); Bilirubin, Total 0.5 mg/dL (0.2-1.2); CK (CPK) 120 U/L (30-200); Calc. Creatinine Clearance 0 mL/min (70-130); Calcium 9.8 mg/dL (7.8-10.44); Carbon Dioxide 20 mmol/L (23-31); Chloride 109 mmol/L (98-107); Estimated GFR-MDRD 81; Globulin 3.7 g/dL (2.4-3.5); Glucose 133 mg/dL (80-115); Potassium 4.9 mmol/L (3.5-5.1); Protein, Total 7.9 g/dL (5.8-8.1); Sodium 137 mmol/L (136-145)
[2017-12-21 17:47] LABS: CKMB 2.5 ng/mL (0-6.6); Troponin I 0.014 ng/mL (< 0.028)
--- NOTE | 2017-12-21 19:15 | PDOC.FPRHP ---
- History of Present Illness Chief Complaint: AICD Firing X6 times History of Present Illness: Cj Vides is a 62 year old male with a PMH of dilated cardiomyopathy, chf (echo 12/11 showed EF of 20-25% and AICD placement one week ago), Atrial Fibrillation, HLD, Type 2 DM, and HTN who presented to the ED after his recently placed AICD fired X6. AICD was interrogated in the ED and patient had wide complex ventricular tachycardia with 6 appropriate shocks. States that heart rate got as high as 286 bpm. Patient denies feeling any chest pain or palpitations prior to, during, or after the events. He states that the first shock caused him to lose consciousness and fall down. This was an unwitnessed fall but he denies any trauma to the head. He was able to get back up and walk after the shocks, only symptom afterward was blurry vision that resolved within a few minutes. He denies biting his tongue, post-ictal state, bowel or bladder incontinence. Prior to this event, he has been feeling his normal self and denies any recent illness. He also states that he is feeling fine now. Denies any complaints. ED Course: In the ED, patient received 325 mg aspirin. - Allergies/Adverse Reactions Allergies Allergy/AdvReac Type Severity Reaction Status Date / Time No Known Drug Allergies Allergy Verified 12/21/17 23:25 - Home Medications Medication Instructions Recorded Confirmed Type Lisinopril [Zestril] 10 mg PO DAILY #0 tab 07/21/15 12/21/17 Rx Pravastatin Sodium [Pravachol] 40 mg PO HS #0 tab 07/21/15 12/21/17 Rx metFORMIN [Glucophage] 500 mg PO BID-WM 12/11/17 12/21/17 History Carvedilol [Coreg] 6.25 mg PO BID-WM #60 tab 12/16/17 12/21/17 Rx Rivaroxaban [Xarelto] 20 mg PO HS #30 tab 12/16/17 12/21/17 Rx - History PMHx: Atrial Fibrillation, Dilated Cardiomyopathy, CHF (Last Echo 12/11/17, EF of 20-25% and AICD placed at that time.), HLD, HTN PSHx: AICD placement FHx: HTN, DM Social: Denies smoking, drugs, alcohol - Review of Systems General: denies: fever/chills, weight/appetite/sleep changes, night sweats, fatigue Eyes: reports: vision changes (blurry vision). denies: eye pain ENT: denies: nasal congestion, rhinorrhea Respiratory: denies: cough, congestion, shortness of breath, exercise intolerance Cardiovascular: denies: chest pain, palpitation, edema, paroxysmal nocturnal dyspnea, orthopnea Gastrointestinal: denies: nausea, vomiting, diarrhea, constipation, abdominal pain, GI bleeding Genitourinary: denies: incontinence, dysuria, polyuria, discharge Skin: denies: rashes, lesions Musculoskeletal: denies: pain, tenderness, stiffness, swelling, arthritis/ arthralgias Neurological: reports: syncope. denies: numbness, seizure, weakness - Vital signs BP: 142/99 HR: 98 RR: 17 Tmax: 97.5 Pox: 95% on RA Wt: 97 kg - Physical Exam Constitutional: NAD, awake, alert and oriented, well developed HEENT: normocephalic and atraumatic, PERRLA, EOMI, conjunctiva clear, no scleral icterus, grossly normal vision, TM's clear and intact, grossly normal hearing, normal nasal mucosa, MMM, oropharynx clear Neck: supple, FROM, trachea midline, no LAD Chest: no-tender to palpation, no lesions Heart: normal S1/S2, no murmurs/rubs/gallops, pulses present, no edema -Heart: irregularly irregular rhythm Lungs: CTAB, no respiratory distress, good air movement, no rales/rhonchi, no wheezing, no retractions Abdomen: soft, non-tender, bowel sounds present Musculoskeletal: normal structure, normal tone, ROM grossly normal Neurological: no focal deficit, CN II-XII intact, normal sensation Skin: no rash/lesions, good turgor, capillary refill <2 seconds Heme/Lymphatic: no unusual bruising or bleeding, no purpura, no petechia Psychiatric: normal mood and affect, good judgment and insight, intact recent and remote memory FMR H&P: Results - Labs Result Diagrams: 12/21/17 17:01 12/21/17 17:00 Lab results: WBC 10.0 thou/uL (4.8-10.8) 12/21/17 17:01 Hgb 15.9 g/dL (14.0-18.0) 12/21/17 17:01 Hct 45.6 % (42.0-52.0) 12/21/17 17:01 MCV 91.1 fl (80.0-94.0) 12/21/17 17:01 Plt Count 263 thou/uL (130-400) 12/21/17 17:01 Neutrophils % 70.4 % (42.0-75.0) 12/21/17 17:01 Sodium 137 mmol/L (136-145) 12/21/17 17:00 Potassium 4.9 mmol/L (3.5-5.1) 12/21/17 17:00 Chloride 109 mmol/L (98-107) H 12/21/17 17:00 Carbon Dioxide 20 mmol/L (23-31) L 12/21/17 17:00 BUN 17 mg/dL (8.4-25.7) 12/21/17 17:00 Creatinine 0.94 mg/dL (0.6-1.3) 12/21/17 17:00 Glucose 133 mg/dL (80-115) H 12/21/17 17:00 Calcium 9.8 mg/dL (7.8-10.44) 12/21/17 17:00 Total Bilirubin 0.5 mg/dL (0.2-1.2) 12/21/17 17:00 AST 30 U/L (5-34) 12/21/17 17:00 ALT 23 U/L (8-55) 12/21/17 17:00 Alkaline Phosphatase 116 U/L (40-150) 12/21/17 17:00 Creatine Kinase 120 U/L (30-200) 12/21/17 17:00 CK-MB (CK-2) 2.5 ng/mL (0-6.6) 12/21/17 17:02 Serum Total Protein 7.9 g/dL (5.8-8.1) 12/21/17 17:00 Albumin 4.2 g/dL (3.4-4.8) 12/21/17 17:00 - EKG Interpretation EKG: atrial fibrillation-rate controlled and RBBB FMR H&P: A/P - Problem List (1) AICD discharge Current Visit: Yes Status: Acute Code(s): Z45.02 - ENCNTR FOR ADJUST AND MGMT OF AUTOMATIC IMPLNTBL CARD DEFIB (2) Afib Current Visit: No Status: Chronic Code(s): I48.91 - UNSPECIFIED ATRIAL FIBRILLATION (3) CHF (congestive heart failure) Current Visit: No Status: Chronic Code(s): I50.9 - HEART FAILURE, UNSPECIFIED (4) HLD (hyperlipidemia) Current Visit: No Status: Chronic Code(s): E78.5 - HYPERLIPIDEMIA, UNSPECIFIED (5) Cardiomyopathy, dilated Current Visit: No Status: Chronic Code(s): I42.0 - DILATED CARDIOMYOPATHY (6) DM2 (diabetes mellitus, type 2) Current Visit: No Status: Chronic (7) HTN (hypertension) Current Visit: No Status: Chronic Code(s): I10 - ESSENTIAL (PRIMARY) HYPERTENSION - Plan (1) AICD Discharge - S/p wide complex ventricular tachycardia up to 280s, s/p AICD discharge X6 - Admit to Tele - Continuous cardiac monitoring - Consult cardiology in the morning - Checking mag, phos, tsh - HH diet, NPO at midnight (2) HFrEF - Echo in 11/2017 showed EF of 20-25% - AICD placed on 12/11/17 - Continue home medications - Will consult cardiology in the morning (3) Atrial Fibrillation - Currently rate controlled - Will continue home medications - Continue eliquis at this time (4) HTN - Home meds (5) HLD - Home meds (6) DM2 - Continue home meds - SSI - Accuchecks achs CODE STATUS: FULL CODE Disposition/LOS: Admit to Tele, anticipate discharge home after hospital stay that will likely be greater than 24 hours FMR H&P: Upper Level - Pertinent history PCP: Danny For All Patient is a 62yo HM with PMHx of dilated cardiomyopathy, HFrEF (EF 20-25% on ) s/p AICD placement on 12/15, Afib, HTN and T2DM who presents after his ACID fired six times. Patient denies any chest pain, palpitations, diaphoresis or any symptoms prior to shocks. States the first shock caused him to fall and lose consciousness. Fall was unwitnessed but denies hitting his head and had no CRAWFORD after the event. Reports after the first shock he was diaphoretic and had some blurry vision. ACID was interrogated in the ED revealing wide complex ventricular tachycardia with 6 appropriate shocks. Of note, patient had cardiac catheterization done on 11/2017 and was normal. ED: none - Pertinent findings T 97.5 BP 118/84 HR 114 RR 18 O2 95% on RA Wt. 97kg General: NAD, resting in bed Heart: irregularly irregular rhythm, AICD at LT upper chest with incision c/d/i Lungs: CTAB Abd: soft, NT/ND/BS+ Ext: no cyanosis or edema EKG: afib and RBBB - Plan Date/Time: 12/21/171914 1. Ventricular tachycardia s/p six shocks via AICD: Patient with recent AICD placement by Dr. Cutler of EP due to HFrEF. AICD interrogated in the ED showing wide complex ventricular tachycardia. Patient was asymptomatic prior to shocks and currently asymptomatic and has no complaints. Admit to tele. Initial cardiac enzymes negative. Cont to trend. Obtain Mg, Phos and TSH. Consult cards/ EP in the AM. 2. HFrEF: ECHO on 11/2017 showing EF 20-25%. Normal cardiac cath on 11/2017. Currently not in exacerbation and will monitor for signs/sxns of fluid overload. Cont home meds. 3. Afib: Currently rate controlled. Monitor on tele. Cont home coreg and eliquis. 4. T2DM: controlled with A1c of 6.6% on 12/11. Cont home metformin. Accuchecks ACHS. SSI. 5. HTN: well-controlled. Cont home Lisinopril. 6. HLD: cont home pravastatin 7. Diet: NPO at MN 8. PPx: eliquis 9. Code Status: Full I, Elissa Zamudio, have evaluated this patient and agree with findings/ plan as outlined by audit practice intern resident. Pertinent changes/additions are listed here. Attending Addendum - Attending Addendum Date/Time: 12/22/17 0709 I personally evaluated the patient and discussed the management with Dr. Llanos. I agree with and repeated the History, Examination, Assessment and Plan documented above with any addition or exceptions noted below. Cardiology consultation, trend TnI, continue current tx.
[2017-12-21] MEDS ORDERED: Acetaminophen 325 MG TAB PO PRN (19:16)
[2017-12-21] MEDS ORDERED: Dextrose 5% in Water 1,000 ML IV PRN (19:21)
[2017-12-21] MEDS ORDERED: HumaLOG 300 UNITS/3 ML VIAL SC PRN (19:21)
[2017-12-21] MEDS ORDERED: Dextrose 50% Abboject 50 ML SYRINGE SLOW IVP PRN (19:21)
--- NOTE | 2017-12-21 19:29 | RAD ---
PORTABLE CHEST: 12/21/2017 PROVIDED CLINICAL HISTORY: Chest pain. COMPARISON: 12/11/2017 FINDINGS: The cardiac silhouette remains enlarged. Emphysematous changes are again seen. Dislocation of the r ight shoulder is again noted. Left subclavian cardiac pacing device is now present, the tip of which overlies the expected location of the RA. Vascular calcification is seen. No focal consolidation, pleural fluid, or pneumothorax apparent. IMPRESSION: Interval cardiac pacing device placement. No evidence for an acute process. POS: YOSELIN
[2017-12-21 20:14] LABS: Phosphorus 2.1 mg/dL (2.3-4.7)
[2017-12-21 20:38] VITALS: BMI 33.5
[2017-12-21 21:22] LABS: CKMB 1.7 ng/mL (0-6.6); Troponin I 0.017 ng/mL (< 0.028)
[2017-12-21] MEDS ORDERED: Magnesium Sulfate 2 GM in Premix Bag 1 BAG IVPB SCH (23:00)
[2017-12-21 23:59] LABS: CKMB 1.9 ng/mL (0-6.6); Troponin I 0.019 ng/mL (< 0.028)
[2017-12-22 06:32] LABS: CKMB 2.6 ng/mL (0-6.6)
[2017-12-22 07:50] LABS: CKMB 2.5 ng/mL (0-6.6); Troponin I 0.033 ng/mL (< 0.028)
[2017-12-22] MEDS ORDERED: Carvedilol 6.25 MG TAB PO SCH (08:00)
[2017-12-22] MEDS: Lisinopril 10 MG TAB PO SCH (08:33)
[2017-12-22] MEDS: Aspirin 325 MG TAB PO SCH (08:33)
[2017-12-22] MEDS: metFORMIN 500 MG TAB PO SCH ×2 (08:33→15:45)
--- NOTE | 2017-12-22 09:22 | PDOC.FM ---
- Subjective Subjective: No acute events overnight. Denies chest pain, palpitations during the event and this morning. - Objective MAR Reviewed: Yes Vital Signs & Weight: Vital Signs (12 hours) Temp Pulse Resp BP Pulse Ox 12/22/17 08:29 98.2 F 73 18 128/79 97 12/22/17 07:27 96 12/22/17 04:00 97.7 F 68 20 122/85 97 Weight Weight 91.58 kg Result Diagrams: 12/22/17 06:50 12/22/17 06:50 <Christina Robbins - Last Filed: 12/22/17 11:49> - Objective Vital Signs & Weight: Vital Signs (12 hours) Temp Pulse Resp BP Pulse Ox 12/22/17 11:21 98.0 F 63 18 131/81 95 12/22/17 08:29 98.2 F 73 18 128/79 97 12/22/17 07:27 96 12/22/17 04:00 97.7 F 68 20 122/85 97 Weight Weight 91.58 kg Result Diagrams: 12/22/17 06:50 12/22/17 06:50 <Felipe Mackey - Last Filed: 12/22/17 12:18> Phys Exam - Physical Examination Constitutional: NAD HEENT: PERRLA, moist MMs Respiratory: no wheezing, no rales, no rhonchi, clear to auscultation bilateral Cardiovascular: RRR, no significant murmur, no rub Gastrointestinal: soft, non-tender, no distention Musculoskeletal: no edema, pulses present Neurological: non-focal, normal sensation Psychiatric: normal affect, A&O x 3 Skin: no rash <Christina Robbins - Last Filed: 12/22/17 11:49> Dx/Plan (1) Heart failure with reduced ejection fraction Code(s): I50.20 - UNSPECIFIED SYSTOLIC (CONGESTIVE) HEART FAILURE Status: Chronic (2) AICD discharge Code(s): Z45.02 - ENCNTR FOR ADJUST AND MGMT OF AUTOMATIC IMPLNTBL CARD DEFIB Status: Chronic (3) Afib Code(s): I48.91 - UNSPECIFIED ATRIAL FIBRILLATION Status: Chronic (4) CHF (congestive heart failure) Code(s): I50.9 - HEART FAILURE, UNSPECIFIED Status: Chronic (5) Cardiomyopathy, dilated Code(s): I42.0 - DILATED CARDIOMYOPATHY Status: Chronic (6) DM2 (diabetes mellitus, type 2) Status: Chronic (7) HLD (hyperlipidemia) Code(s): E78.5 - HYPERLIPIDEMIA, UNSPECIFIED Status: Chronic (8) HTN (hypertension) Code(s): I10 - ESSENTIAL (PRIMARY) HYPERTENSION Status: Chronic - Plan Plan: AICD Discharge - S/p wide complex ventricular tachycardia up to 280s, s/p AICD discharge X6 - Continue cardiac monitoring on tel - Check mag, phos, tsh - HH diet, NPO at midnight HFrEF - Echo in 11/2017 showed EF of 20-25% - AICD placed on 12/11/17 - Carvedilol, aspirin, lisinopril, statin - Cardiology consulted; will follow recommendations Atrial Fibrillation -continue carvedilol and xarelto HTN - carvedilol, lisinopril HLD - pravastatin DM2 - metformin - SSI - Accuchecks achs CODE STATUS: FULL CODE <Christina Robbins - Last Filed: 12/22/17 11:49> Attending Addendum - Attending Addendum Date/Time: 12/22/17 1217 I personally evaluated the patient and discussed the management with I agree with the History, Examination, Assessment and Plan documented above with any addition or exceptions noted below. No further episodes trending troponins and consult Cardiology any further recommendation. <Felipe Mackey - Last Filed: 12/22/17 12:18>
--- NOTE | 2017-12-22 09:26 | PDOC.FM ---
- Objective Vital Signs & Weight: Vital Signs (12 hours) Temp Pulse Resp BP Pulse Ox 12/22/17 08:29 98.2 F 73 18 128/79 97 12/22/17 07:27 96 12/22/17 04:00 97.7 F 68 20 122/85 97 Weight Weight 91.58 kg Result Diagrams: 12/21/17 17:01 12/21/17 17:00
[2017-12-22 09:42] LABS: #Basophils 0.1 thou/uL (0.0-0.2); #Eosinphils 0.3 thou/uL (0.0-0.7); #Lymphocytes 2.5 thou/uL (1.20-3.40); #Monocytes 0.7 thou/uL (0.11-0.59); %Basophils 0.7 % (0.0-1.0); %Eosinophils 2.9 % (0.0-10.0); %Lymphocytes 26.2 % (21.0-51.0); %Monocytes 7.3 % (0.0-10.0); %Neutrophils 62.9 % (42.0-75.0); Hemoglobin 15.3 g/dL (14.0-18.0); Mean Corpuscular HGB CONC 33.3 g/dL (32.0-36.0); Mean Corpuscular Hemoglobin 31.1 pg (27.0-31.0); Mean Corpuscular Volume 93.1 fl (80.0-94.0); Mean Platelet Volume 7.5 fL (7.4-10.4); Platelet Count 239 thou/uL (130-400); RBC Distribution Width 13.6 % (11.5-14.5); Red Blood Cell (RBC) Count 4.93 mill/uL (4.70-6.10); White Blood Cell (WBC) Count 9.6 thou/uL (4.8-10.8)
[2017-12-22 10:23] LABS: Troponin I 0.042 ng/mL (< 0.028)
[2017-12-22 10:35] LABS: Anion Gap 12 mmol/L (10-20); BUN (Urea Nitrogen) 14 mg/dL (8.4-25.7); Calc. Creatinine Clearance 122 mL/min (70-130); Calcium 9.6 mg/dL (7.8-10.44); Carbon Dioxide 21 mmol/L (23-31); Chloride 109 mmol/L (98-107); Estimated GFR-MDRD Greater than 90; Glucose 104 mg/dL (80-115); Magnesium 2.4 mg/dL (1.6-2.6); Phosphorus 3.2 mg/dL (2.3-4.7); Potassium 4.3 mmol/L (3.5-5.1); Sodium 138 mmol/L (136-145)
--- NOTE | 2017-12-22 13:18 | CON ---
DATE OF CONSULTATION: 12/22/2017 REASON FOR CONSULTATION: Defibrillator discharge. PRIMARY MEDICAL RECORDS CUSTODIAN: Dr. Sahil Howard HISTORY OF PRESENT ILLNESS: Mr. Vides is a 62-year-old gentleman. The patient recently underwent ev aluation and underwent cardiac catheterization which showed mild nonobstructive coronary disease, but he had markedly depressed left ventricular function. Therefore, he underwent a defibrillator implan tation. The patient did well following that, but came back to the hospital after he had 6 defibrilla tor discharges. He is not having chest pain or pressure. Otherwise, he was feeling well. MEDICATIONS: 1. At home he was taking Lisinopril 10 mg a day. 2. Carvedilol 6.25 mg twice a day. 3. Xarelto 20 mg a day. 4. Pravastatin 40 mg daily. 5. Lisinopril 10 mg a day. ALLERGIES: None known. SOCIAL HISTORY: No alcohol or tobacco. REVIEW OF SYSTEMS: Per the notes were negative per review of systems documented in the chart. CONSTITUTIONAL: No significant weight gain or loss. VISION: No changes. HEARING: No changes. PULMONARY: No cough or wheezing. SKIN: No rashes. NEUROLOGIC: No unilateral weakness or numbness. PHYSICAL EXAMINATION: GENERAL: This is a pleasant gentleman in no distress. VITAL SIGNS: Blood pressure is 130/80, pulse 80, it is irregular, atrial fibrillation. HEENT: Eyes; sclerae nonicteric. Mouth mucous membranes are moist. NECK: Supple, no lymphadenopathy. LUNGS: Clear, no wheezing, rales or rhonchi. CARDIAC: Irregular, irregular. ABDOMEN: Soft, nontender. EXTREMITIES: No edema. ASSESSMENT: 1. Cardiomyopathy. 2. Recent defibrillator implantation. 3. No significant atherosclerotic heart disease with mild plaque. 4. Defibrillator discharges ? ventricular tachycardia versus atrial fibrillation with a rapid rate. PLAN: 1. Increase carvedilol to 25 mg twice a day. 2. Consult Dr. Cutler. 3. Dr. Howard will resume the patient's care tomorrow.
[2017-12-22 13:28] LABS: Troponin I 0.028 ng/mL (< 0.028)
[2017-12-22] MEDS: Carvedilol 25 MG TAB PO SCH (15:45)
[2017-12-22] MEDS ORDERED: Rivaroxaban 10 MG TAB PO SCH (21:00)
[2017-12-22] MEDS ORDERED: Pravastatin Sodium 40 MG TAB PO SCH (21:00)
--- NOTE | 2017-12-22 22:26 | CON ---
DATE OF CONSULTATION: 12/22/2017 ELECTROPHYSIOLOGY CONSULTATION This is an electrophysiology consultation dictated as scribe for Dr. Jax Cutler. REFERRING PHYSICIAN: Sahil Howard MD REASON FOR CONSULTATION: ICD discharges and ICD management. HISTORY OF PRESENT ILLNESS: Mr. Vides is a very pleasant 62-year-old man, who was admitted earlier i n November for atrial fibrillation. During that hospitalization, he underwent implant of a single lead IC D for his longstanding cardiomyopathy. He has a longstanding history of atrial arrhythmias and has b een on anticoagulation inconsistently for that. His atrial fibrillation is chronic. Unfortunately, he presented to the emergency room on 12/21/2017 reporting 6 ICD discharges. He denies that he felt any chest pain, palpitations, or heart racing leading up to or after his shocks. The initial shock d id cause him to have loss of consciousness and fall. He does not feel that he had any head trauma at that time. He denies any recent illness or any medication noncompliance to the best of his knowledg e leading up to this. REVIEW OF SYSTEMS: General: Negative for fevers, chills, weight loss, appetite changes, sleep horowitz es, night sweats, or fatigue. Respiratory: Negative for shortness of breath, exercise intolerance, increasing congestion, or cough. Cardiovascular: Negative for heart racing, palpitations, chest yousif n or pressure. Gastrointestinal: Negative for nausea, vomiting, diarrhea, constipation, blood in th e stool. Genitourinary: Negative for incontinence, urine, or difficulty urinating. Neurologi c: Negative for stroke, stroke-like symptoms, seizure activity, or syncopal or near syncopal episode s. PAST MEDICAL HISTORY: 1. Cardiomyopathy HFrEF 20% to 25%. 2. Hypertension. 3. Chronic atrial fibrillation. 4. Single-chamber ICD implanted, 11/2017. ALLERGIES: No known allergies. HOME MEDICATIONS: Lisinopril 10 mg daily, carvedilol 6.25 mg b.i.d., Xarelto 20 mg daily, pravastati n 40 mg daily. SOCIAL HISTORY: Negative for alcohol, tobacco, or illegal drugs. FAMILY HISTORY: Negative for sudden cardiac or coronary artery disease to the best of his unde rstanding. PHYSICAL EXAMINATION: VITAL SIGNS: Most recent vital signs are 97.8 degrees Fahrenheit, pulse 65, respirations 12, oxygen saturation 95% on room air, blood pressure 123/89. GENERAL: This is a pleasant gentleman in no acute distress. HEENT: Normocephalic. Sclerae are anicteric. Oral mucosa is moist and pink. NECK: Supple without lymphadenopathy or jugular venous distention. LUNGS: Clear to auscultation bilaterally without wheezes, crackles, or rhonchi. CARDIOVASCULAR: Irregularly irregular. ABDOMEN: Soft and nontender without palpable masses. EXTREMITIES: Warm and dry to touch without clubbing, cyanosis, or edema. NEUROLOGIC: Grossly intact and nonfocal. DATABASE: Device interrogation: The patient has a [employer] Visia AF single-chamber ICD, date of i mplant was 12/15/2017. Current mode is VVI with a lower rate limit of 40 beats per minute. VT detec tion 171-200 beats per minute. VF detection greater than 200 beats per minute. Atrial arrhythmia bu rden is 99.8%. Total shocks delivered 6 for device-interpreted ventricular fibrillation. RV paramet ers are stable with impedance at 399 ohms and threshold at 1.125 volts at 0.4 milliseconds. Review o f this device interrogation finds atrial fibrillation with RVR, poorly controlled ventricular rates p rompting multiple ICD shocks. LABORATORY DATA: Hematology unremarkable. Chemistry: Potassium 4.3, creatinine 0.8, magnesium 3.2, sodium 138. Telemetry and EKG revealed chronic atrial fibrillation with variable ventricular rate, now sustaining in the 60-70 beat per minute range. There is a right bundle-branch block. IMPRESSION: 1. Multiple ICD shocks due to atrial fibrillation with rapid ventricular response. 2. Chronic systolic heart failure with cardiomyopathy. 3. Status post recent ICD implant on 12/15/2017. RECOMMENDATIONS: 1. Optimize beta-florentino therapy for improved rate control with chronic atrial fibrillation. 2. Increase the VT detection zone to greater than 200 beats per minute. 3. Continue oral anticoagulation on Xarelto. Thank you for allowing us to participate in the care of this patient. We will continue to follow thr ough his hospitalization.
[2017-12-23 05:02] LABS: #Basophils 0.1 thou/uL (0.0-0.2); #Eosinphils 0.3 thou/uL (0.0-0.7); #Lymphocytes 2.8 thou/uL (1.20-3.40); #Monocytes 0.7 thou/uL (0.11-0.59); #Neutrophils 5.1 thou/uL (1.40-6.50); %Basophils 1.1 % (0.0-1.0); %Eosinophils 3.1 % (0.0-10.0); %Lymphocytes 31.4 % (21.0-51.0); %Monocytes 7.8 % (0.0-10.0); %Neutrophils 56.6 % (42.0-75.0); Hemoglobin 14.1 g/dL (14.0-18.0); Mean Corpuscular HGB CONC 32.9 g/dL (32.0-36.0); Mean Corpuscular Hemoglobin 30.4 pg (27.0-31.0); Mean Corpuscular Volume 92.3 fl (80.0-94.0); Mean Platelet Volume 7.1 fL (7.4-10.4); Platelet Count 221 thou/uL (130-400); RBC Distribution Width 13.4 % (11.5-14.5); Red Blood Cell (RBC) Count 4.65 mill/uL (4.70-6.10); White Blood Cell (WBC) Count 8.9 thou/uL (4.8-10.8)
[2017-12-23 05:23] LABS: Anion Gap 10 mmol/L (10-20); BUN (Urea Nitrogen) 18 mg/dL (8.4-25.7); Calc. Creatinine Clearance 111 mL/min (70-130); Calcium 9.5 mg/dL (7.8-10.44); Carbon Dioxide 24 mmol/L (23-31); Chloride 106 mmol/L (98-107); Estimated GFR-MDRD 87; Glucose 100 mg/dL (80-115); Magnesium 1.9 mg/dL (1.6-2.6); Phosphorus 3.5 mg/dL (2.3-4.7); Potassium 4.1 mmol/L (3.5-5.1); Sodium 136 mmol/L (136-145)
--- NOTE | 2017-12-23 07:22 | PDOC.FM ---
- Subjective Subjective: Pt continues to be in afib. Had one run of RVR while in the shower this morning. Denies complaints this morning. - Objective MAR Reviewed: Yes Vital Signs & Weight: Vital Signs (12 hours) Temp Pulse Resp BP Pulse Ox 12/23/17 04:00 97.7 F 66 16 90/66 94 L 12/22/17 21:21 97.3 F L 54 L 18 99/63 96 Weight Weight 91.58 kg Result Diagrams: 12/23/17 03:52 12/23/17 03:52 <Christina Robbins - Last Filed: 12/23/17 09:15> - Objective Vital Signs & Weight: Vital Signs (12 hours) Temp Pulse Resp BP Pulse Ox 12/23/17 11:22 98.4 F 62 17 113/66 95 12/23/17 07:36 97.7 F 70 18 125/76 95 12/23/17 04:00 97.7 F 66 16 90/66 94 L Weight Weight 91.58 kg Result Diagrams: 12/23/17 03:52 12/23/17 03:52 <Felipe Mackey - Last Filed: 12/23/17 13:18> Phys Exam - Physical Examination Constitutional: NAD HEENT: PERRLA, moist MMs Neck: no nodes, no JVD Respiratory: no wheezing, no rales, clear to auscultation bilateral Cardiovascular: no significant murmur irregularly irregular Gastrointestinal: soft, non-tender, no distention, positive bowel sounds Musculoskeletal: no edema, pulses present Neurological: non-focal, normal sensation Psychiatric: normal affect, A&O x 3 Skin: no rash <Christina Robbins - Last Filed: 12/23/17 09:15> Dx/Plan (1) Heart failure with reduced ejection fraction Code(s): I50.20 - UNSPECIFIED SYSTOLIC (CONGESTIVE) HEART FAILURE Status: Chronic (2) AICD discharge Code(s): Z45.02 - ENCNTR FOR ADJUST AND MGMT OF AUTOMATIC IMPLNTBL CARD DEFIB Status: Chronic (3) Afib Code(s): I48.91 - UNSPECIFIED ATRIAL FIBRILLATION Status: Chronic (4) CHF (congestive heart failure) Code(s): I50.9 - HEART FAILURE, UNSPECIFIED Status: Chronic (5) Cardiomyopathy, dilated Code(s): I42.0 - DILATED CARDIOMYOPATHY Status: Chronic (6) DM2 (diabetes mellitus, type 2) Status: Chronic (7) HLD (hyperlipidemia) Code(s): E78.5 - HYPERLIPIDEMIA, UNSPECIFIED Status: Chronic (8) HTN (hypertension) Code(s): I10 - ESSENTIAL (PRIMARY) HYPERTENSION Status: Chronic - Plan Plan: AICD Discharge - S/p wide complex ventricular tachycardia up to 280s, s/p AICD discharge X6 - Continue cardiac monitoring on tel - Cardiology consulted who recommend carvedilol to 25mg BID, increasing the VT detection zone to >200 beats per minute, and continuing xarelto. HFrEF - Echo in 11/2017 showed EF of 20-25% - AICD placed on 12/11/17 - Carvedilol, aspirin, lisinopril, statin - Cardiology consulted; will follow recommendations (see above) Atrial Fibrillation - carvedilol to 25mg BID and continue xarelto HTN - carvedilol 25mg BID, lisinopril 10mg daily HLD - pravastatin 20mg daily DM2 - metformin 1000mg BID - SSI - [facility] CODE STATUS: FULL CODE Dispo: likely dc this afternoon <Christina Robbins - Last Filed: 12/23/17 09:15> Attending Addendum - Attending Addendum Date/Time: 12/23/17 1317 I personally evaluated the patient and discussed the management with I agree with the History, Examination, Assessment and Plan documented above with any addition or exceptions noted below. Adjustment made for rate control and AICD settings should be stable for dismissal. <Felipe Mackey - Last Filed: 12/23/17 13:18>
[2017-12-23] MEDS: Carvedilol 25 MG TAB PO SCH ×2 (07:40→16:37)
[2017-12-23] MEDS: Aspirin 325 MG TAB PO SCH (07:40)
[2017-12-23] MEDS: Lisinopril 10 MG TAB PO SCH (07:40)
[2017-12-23] MEDS: metFORMIN 500 MG TAB PO SCH ×2 (07:40→16:37)
[2017-12-23 15:11] VITALS: TEMP 97.9
--- NOTE | 2017-12-23 15:16 | PDOC.CTH ---
Cardiology Progress Note - Subjective He is doing better. He has not had any more episodes of AICD therapies. Breathing is at baseline. - Objective Vital Signs Temp Pulse Resp BP Pulse Ox 12/23/17 15:06 97.9 F 61 16 113/67 95 12/23/17 11:22 98.4 F 62 17 113/66 95 12/23/17 07:36 97.7 F 70 18 125/76 95 12/23/17 04:00 97.7 F 66 16 90/66 94 L Weight 201 lb 14.4 oz - Physical Examination General/Neuro: alert & oriented x3, NAD Neck: no JVD present Lungs: unlabored respirations Heart: other: (Irreg) Abdomen: NT/ND Extremities: other: (no edema) - Telemetry Telemetry Rhythm: Afib HR 80's. - Labs Result Diagrams: 12/23/17 03:52 12/23/17 03:52 Troponin/CKMB CK-MB (CK-2) 2.5 ng/mL (0-6.6) 12/22/17 06:50 Troponin I 0.028 ng/mL (< 0.028) 12/22/17 12:41 - Assessment/Plan 1. AICD shocks, inappropriate due to rapid afib. 2. Non ischemic CM 3. Dilated LV EF at 20-25% 4. Chronic afib. PLAN: - EP consultation - Rate control. - Xarelto for stroke prophylaxis.
--- NOTE | 2017-12-23 16:03 | PDOC.CTH ---
<MasontranKia altamirano - Last Filed: 12/23/17 16:01> Cardiology Progress Note - Subjective EP progress note: seen and evaluated. No new cardiac concerns or complaint overnight. No additional ICD discharges, heart racing, dizziness, or palpitations. + chronic right shoulder pain - Objective Vital Signs Temp Pulse Resp BP Pulse Ox 12/23/17 15:06 97.9 F 61 16 113/67 95 12/23/17 11:22 98.4 F 62 17 113/66 95 12/23/17 07:36 97.7 F 70 18 125/76 95 Weight 201 lb 14.4 oz - Physical Examination General/Neuro: alert & oriented x3, NAD Neck: no JVD present Lungs: unlabored respirations Heart: other: (Chronic AF) Abdomen: NT/ND, soft - Telemetry Telemetry Rhythm: AF, VR better controlled - Labs Result Diagrams: 12/23/17 03:52 12/23/17 03:52 Troponin/CKMB CK-MB (CK-2) 2.5 ng/mL (0-6.6) 12/22/17 06:50 Troponin I 0.028 ng/mL (< 0.028) 12/22/17 12:41 - Assessment/Plan 1. AICD discharges- r/t AF with RVR. VT and VF detection zones adjusted. 2. Atrial fibrillation, chronic- VR much better controlled on Carvedilol 25mg BID. Continue. 3. OAC- Xarelto. Continue for CVA prophylaxis. Ok for DC by EP <Jax Cutler - Last Filed: 12/23/17 16:33> Cardiology Progress Note - Objective Vital Signs Temp Pulse Resp BP Pulse Ox 12/23/17 15:06 97.9 F 61 16 113/67 95 12/23/17 11:22 98.4 F 62 17 113/66 95 18 07:36 97.7 F 70 18 125/76 95 Weight 201 lb 14.4 oz - Labs Result Diagrams: 12/23/17 03:52 12/23/17 03:52 Troponin/CKMB CK-MB (CK-2) 2.5 ng/mL (0-6.6) 12/22/17 06:50 Troponin I 0.028 ng/mL (< 0.028) 12/22/17 12:41 Attending Addendum - Attending Addendum Date/Time: 12/23/17 9246 I personally evaluated the patient and discussed the management with ms Gruber. I agree with the History, Examination, Assessment and Plan documented above with any addition or exceptions noted below.
[2017-12-23 16:38] VITALS: BP 110/73
[2017-12-23] MEDS ORDERED: Carvedilol 25 MG TAB PO SCH (17:00)
== END 2017-12-23 17:57 | disposition home or self-care (01) | DRG 309 ==
LOC: ERS 16:56 → 2NO 18:15
PROVIDERS: ADMIT Emergency Medicine; ATTEND Emergency Medicine
DX: I47.2 Ventricular tachycardia (principal); I50.22 Chronic systolic (congestive) heart failure; I42.0 Dilated cardiomyopathy; I48.2 Chronic atrial fibrillation; E11.9 Type 2 diabetes mellitus without complications; Z79.84 Long term (current) use of oral hypoglycemic drugs; Z79.899 Other long term (current) drug therapy; Z95.810 Presence of automatic (implantable) cardiac defibrillator
CPT/HCPCS: 36415; 36416; 71045; 80048; 80053; 80061; 82550; 82553; 83735; 84100; 84443; 84484; 85025; 93005; 94760; J3475